=== PATIENT | male | born 1945 | race Caucasian/White ===

== ENCOUNTER 2020-02-07 11:59 | Emergency (ER) | payer MEDICARE, SELFPAY ==
[2020-02-07] VITALS (14 sets, daily range): BP systolic 106–123; BP diastolic 62–72; PULSE 70–92; RESP 15–35; TEMP 37.7; O2SAT 89–99
--- NOTE | ~2020-02-07 | CT_ITS ---
EXAMINATION: CT chest abdomen pelvis wo con DATE: 02/07/2020 12:55 INDICATION: Generalized pain. Pneumonia. Shortness of breath. TECHNIQUE: Computed tomography (CT) of the chest, abdomen, and pelvis was performed without intraveno us contrast. Automated exposure control and iterative reconstruction technique were employed. The dos e-length product was 1208.17 mGy-cm. COMPARISON: None FINDINGS: CHEST CT: Bilateral scattered patchy groundglass opacities in throughout both lungs consistent with pneumonia. There is also scattered mild linear discoid atelectasis. Small left pleural effusion. Bilateral calci fied pulmonary nodules along with calcified right hilar and mediastinal lymph nodes consistent with o ld granulomatous disease. Borderline heart size. No pericardial effusion. No pathologically enlarged thoracic lymphadenopathy. Postoperative change of prior median sternotomy with aortic valve repair an d possible stenting of the proximal descending thoracic aorta. There is aneurysmal dilation of the de scending thoracic aorta which measures up to 4.6 cm in maximal diameter. There is a type B aortic dis section with intramural hematoma slightly higher in attenuation than the blood pool the lumen of the aorta which extends from the origin of the left subclavian artery to the level of the renal arteries in the upper abdominal aorta. No evident para-aortic stranding to suggest rupture. 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 Mild to moderate thoracic spondylosis. ABDOMEN/PELVIS CT: Liver, gallbladder, pancreas, bilateral adrenal glands are normal. Splenic calcification consistent w ith old granulomatous disease. 1.4 cm low-attenuation likely splenic cysts. There are also multiple b ilateral low-attenuation renal cysts the largest measuring up to 8.7 cm on the left. 12 mm hyperdense proteinaceous/hemorrhagic cyst at the lower pole of the right kidney. There are several additional b ilateral indeterminate renal lesions with attenuation between that of blood and simple fluid which re main equivocal for proteinaceous/hemorrhagic cysts and solid neoplasm. The most concerning due to its size and somewhat heterogeneous attenuation arising from the lower pole of the right kidney and montrell ures up to 6.4 cm in maximal dimensions. A short segment of nonobstructed small bowel extends into a small umbilical hernia. The appendix is not visualized. No pericecal inflammatory change to suggest a cute appendicitis. There is mild colonic diverticulosis with a sigmoid predominance. There is no nelson cent inflammatory change to suggest diverticulitis. Bladder is normal. No free intraperitoneal gas o r fluid. No pathologically enlarged abdominal or pelvic lymphadenopathy. Small low-density likely plu g for left inguinal hernia repair at the entrance to the left inguinal canal. Mild lumbar dextrocurva ture with moderate spondylosis. IMPRESSION: 1. 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 Recommend urgent vascular surgery consultation. Dr. Guerra dis cussed these findings with Dr. Paige at 1:15 PM. 2. Patchy bilateral lung disease consistent with multifocal pneumonia. 3. Small left pleural effusion. 4. A few bilateral indeterminate immediate attenuation renal lesions, the largest measuring 6.4 cm th e inferior pole of the right kidney which could represent either renal cell carcinoma or proteinaceou s/hemorrhagic cyst. Recommend further evaluation with pre and postcontrast MRI or CT. 5. Small umbilical hernia containing short segment of nonobstructed small bowel. Reviewed, dictated and finalized at location A. MACHINE OPERATOR IMPRESSION:
--- NOTE | 2020-02-07 12:19 | ECG_ITS ---
Measurements Intervals [place] Rate: 89 P: AK: 0 QRS: 14 QRSD: 108 T: 80 QT: 375 QTc: 457 Interpretive Statements SINUS RHYTHM ATRIAL PREMATURE COMPLEX BORDERLINE ST-T WAVE ABNORMALITY- ANTEROLAT/HIGH LAT LEADS BASELINE ARTIFACT- I, II, III, AVR, AVL, AVF, V1-V6 ABNORMAL ECG Electronically Signed On 02-07-2020 13:01:56 HOUSING MANAGER by Aidan Palomo D.O.
--- NOTE | 2020-02-07 12:30 | ED.GENADULT ---
HPI - General Adult General Chief complaint: Shortness of Breath/Dyspnea Stated complaint: sob, pneumonia? Time Seen by Provider: 02/07/20 12:08 Source: patient Mode of arrival: ambulatory Limitations: no limitations History of Present Illness HPI narrative: Patient is a 74-year-old male complaining of shortness of breath, generalized weakness, malaise, and bilateral flank pain that started weeks ago, not better and getting worse. Patient states that he was diagnosed with pneumonia 3 weeks ago and was admitted at [facility]. Patient denies any chest pain, abdominal pain, nausea vomiting, diarrhea, or fever. Denies any urinary symptoms. Related Data Home Medications Medication Instructions Recorded Confirmed Glucosamine 02/07/20 albuterol sulfate INHALATION 02/07/20 02/07/20 atorvastatin 02/07/20 calcium citrate-vitamin D3 02/07/20 fenofibrate mg 02/07/20 finasteride mg 02/07/20 fluticasone propionate INTRANASAL 02/07/20 furosemide 02/07/20 gabapentin 02/07/20 levetiracetam PO 02/07/20 losartan 02/07/20 metformin mg PO 02/07/20 potassium chloride meq PO 02/07/20 prednisone 02/07/20 ropinirole mg 02/07/20 timolol maleate drp 02/07/20 verapamil mg PO 02/07/20 warfarin 02/07/20 Allergies Allergy/AdvReac Type Severity Reaction Status Date / Time No Known Allergies Allergy Unknown Verified 02/07/20 13:24 Review of Systems Review of Systems: All systems reviewed & are unremarkable except as noted in HPI and below Constitutional: Constitutional: Denies body ache(s), Denies chills, Denies excessive sweating, Denies fever(s), Denies headache(s), Denies lethargy and Denies weight loss Eyes: Eyes: Denies blurry vision, Denies change in vision and Denies loss of vision ENT: Denies dizziness, Denies ear discharge, Denies headache(s), Denies lip swelling, Denies epistaxis, Denies nasal congestion, Denies neck pain, Denies throat swelling and Denies tongue swelling Cardiovascular: Cardiovascular: Denies chest pain, Denies chest pain at rest, Denies chest pain with activity, Denies diaphoresis, Denies rapid heart rate, Denies edema, Denies irregular heart rhythm, Denies lightheadedness and Denies palpitations Respiratory: Respiratory: Denies chest congestion, Denies cough and Denies hemoptysis Gastrointestinal: Gastrointestinal: Denies abdominal pain, Denies melena, Denies hematochezia, Denies diarrhea, Denies nausea, Denies vomiting and Denies hematemesis Musculoskeletal: Musculoskeletal: Denies abnormal gait, Denies deformity, Denies joint swelling, Denies limited range of motion, Denies neck pain and Denies numbness Neurologic: Denies Abnormal speech present, Denies abnormal gait, Denies confusion, Denies dizziness, Denies headache(s), Denies focal weakness, Denies loss of vision, Denies numbness, Denies Other visual disturbances, Denies Sensory deficit (Neuro) and Denies weakness Psychiatric: Psychiatric: Denies confusion, Denies depression, Denies auditory hallucinations, Denies homicidal ideation and Denies suicidal ideation Endocrine: Endocrine: Denies cold intolerance, Denies excessive sweating, Denies fatigue, Denies heat intolerance and Denies palpitations Hematologic/Lymphatic: Hematologic/Lymphatic: Denies easy bleeding and Denies easy bruising Allergic/Immunologic: Allergic/Immunologic: Denies lip swelling, Denies throat swelling and Denies tongue swelling PMFSH Family History Family History (Updated 02/22/11 @ 09:12 by DOCTOR UNKNOWN) Other Family history of cardiovascular disease Hypertension Social History Social History Alcohol intake: current Course Course Emergency Course: [facility] was called in the beginning but they do not have any beds available so they directed us to call [facility]. [facility] was called spoke with Dr. Interiano, vascular surgery at [facility] and accepted the transfer. I spoke to the ER doctor at [facility] Dr. Reich he suggested to call other facility si
--- NOTE | 2020-02-07 12:43 | PC.NURSE ---
called caridad mendieta, added on D dimer and BNP 1242
[2020-02-07] MEDS: SODIUM CHLORIDE 0.9% IV 1,000 ML 999 ML IV CONT (12:47)
--- NOTE | 2020-02-07 12:48 | PC.NURSE ---
To CT via stretcher.
[2020-02-07 12:50] LABS: Basophils Percent Auto 0.2 % (0.2-1.2); Eosinophils Percent Auto 0.4 % (0-4.4); Hematocrit 32.7 % (42.0-52.0); Hemoglobin 10.6 g/dL (14.0-18.0); Immature Granulocyte Absolute 0.04 K/mm3 (0.00-0.031); Immature Granulocyte Percent A 0.4 % (0-0.5); Lymphocytes Absolute Auto 1.02 K/mm3 (0.9-3.2); Lymphocytes Percent Auto 10.5 % (18.3-44.2); Mean Corpuscular HGB Conc 32.4 g/dl (32-36); Mean Corpuscular Hemoglobin 30.8 pg (26-34); Mean Corpuscular Volume 95.1 fl (80-100); Mean Platelet Volume 10.6 fl (7.4-10.4); Monocytes Absolute Auto 1.1 K/mm3 (0.1-0.6); Monocytes Percent Auto 11.1 % (2.6-8.5); Neutrophils Absolute Auto 7.5 K/mm3 (1.3-6.7); Neutrophils Percent Auto 77.4 % (45.5-73.1); Platelet Count Result 119 k/mm3 (150-375); Red Blood Count 3.44 M/mm3 (4.6-6.20); Red Cell Distribution Width 15.8 % (11.5-14.5); White Blood Count 9.7 K/mm3 (4.5-10.0)
[2020-02-07 12:58] LABS: Prothrombin Time 31.9 Seconds (11.1-14.7)
[2020-02-07 13:02] LABS: Add Urine Microscopic? YES; Appearance Urine Clear (Clear); Bacteria Urine Trace /hpf; Bilirubin Urine Negative (Negative); Blood Urine Negative (Negative); Color Urine Yellow (Yellow); Glucose Urine UA Negative (Negative); Ketones Urine Negative (Negative); Leukocyte Esterase Ur Negative LEU/UL (Negative); Nitrate Urine Negative (Negative); Protein Urine 1+ mg/dL (Negative); Specific Grav Ur 1.014 (1.001-1.035); Squamous Epithelial Cell Urine Rare /hpf (Few); WBC Urine 0-3 /hpf
[2020-02-07 13:03] LABS: Lactic Acid Reflex 1.1 mmol/L (0.7-2.1)
[2020-02-07 13:04] LABS: Alanine Aminotransferase 21 U/L (4-50); Alkaline Phosphatase 90 U/L (38-126); Anion Gap 2 mmol/L (8-16); Aspartate Amino Transferase 30 U/L (17-59); Blood Urea Nitrogen 22 mg/dL (9-20); Calcium 9.4 mg/dL (8.4-10.2); Carbon Dioxide 34 mmol/L (22-30); Chloride 100 mmol/L (98-107); Estimated Glomerular Filt Rate 50; Glucose 127 mg/dL (75-110); Potassium 3.6 mmol/L (3.4-5.0); Sodium 136 mmol/L (137-145)
[2020-02-07 13:15] LABS: Troponin I 0.028 ng/mL (0.000-0.034)
[2020-02-07 13:32] LABS: D Dimer 3.35 ug/mL (<0.48)
[2020-02-07 13:39] LABS: NT Pro B Type Natriuretic Pept 1130 PG/ML (5-100)
--- NOTE | 2020-02-07 14:33 | PC.NURSE ---
Dr. Paige at bedside discussing plan of care.
--- NOTE | 2020-02-07 15:12 | PC.NURSE ---
[facility] accepted transfer to [facility], [place] 45min TRIP # [id number]
--- NOTE | 2020-02-07 15:18 | PC.NURSE ---
This nurse faxed patient's CT report to 's office upon request. Faxed to [phone].
--- NOTE | 2020-02-07 16:18 | PC.NURSE ---
Addendum entered by Joaquín Quarles RN 02/07/20 16:36: Pt and updated. Pt denies needs at present. Original Note: eta status is another 30 min
== END 2020-02-07 16:58 | disposition short-term general hospital (02) ==
PROVIDERS: Emergency Provider Emergency Medicine; PCP Internal Medicine
DX: I71.01 Dissection of thoracic aorta (principal); J18.9 Pneumonia, unspecified organism; Z79.84 Long term (current) use of oral hypoglycemic drugs; I49.1 Atrial premature depolarization; R94.31 Abnormal electrocardiogram [ECG] [EKG]; N28.9 Disorder of kidney and ureter, unspecified; K42.9 Umbilical hernia without obstruction or gangrene
CPT/HCPCS: 36415; 71250; 74176; 80053; 81001; 83605; 83880; 84484; 85025; 85380; 85610; 93005; 96361; 96365; 96367; 99291; J0456; J0696; J7030

== ENCOUNTER 2021-01-27 00:57 | Day surgery (SDC) | payer MEDICARE, SELFPAY ==
[2021-01-12 16:06] VITALS: BMI 24.8
--- NOTE | 2021-01-26 08:48 | PM.HPGS ---
History of Present Illness History of Present Illness Consent: Risks, benefits, and alternatives have been discussed and questions answered. Patient agrees to proceed with procedure. Chief complaint: abnormal CAT scan Narrative: Reggie Berry is a 75 year old male Who recently underwent CT angiography of the chest. One of the findings was a new abnormal appearing lymph node in the gastrohepatic area. There was also mention of decreased fat between the aneurysm in esophagusFor that reason radiology recommended EGD to rule out upper gastrointestinal pathology. The CT shows effacement of the fat plane between the esophagus and aneurysm . Review of Systems Review of Systems: All systems reviewed & are unremarkable except as noted in HPI and below PMFSH Past Medical History Medical History Abdominal pain Aortic valve disorder Chest pain Essential hypertension Gastroesophageal reflux disease Herpes zoster Hydrocele Multiple renal cysts Obstructive sleep apnea CPAP Overactive bladder Rheumatoid arthritis Sciatica Seizure 2013 Sinusitis Spinal stenosis of lumbar region Type 2 diabetes mellitus without complication Type 2 dissection of thoracic aorta Venous stasis Vitamin B12 deficiency (non anemic) Surgical History Surgical History History of artificial heart valve History of coronary artery stent placement Hx of CABG Family History Family History Mother , age 85 Cerebral aneurysm Father , age 70 Arteriosclerotic heart disease Sibling Hypertension Sibling Esophageal reflux Other Family history of cardiovascular disease Social History Social History Smoking status: Never smoker Alcohol intake: current Alcohol use details: occasional wine cooler Substance use: never Substance use type: does not use Living arrangements: with family Additional living arrangements comments: lives with spouse Spiritual care concerns: No Meds Home Medications and Allergies Home Medications Medication Instructions Recorded Confirmed Type calcium citrate-vitamin D3 1 tab-cap PO DAILY 02/07/20 01/12/21 History fluticasone propionate 1 spray INTRANASAL PRN PRN 02/07/20 01/12/21 History atorvastatin 40 mg tablet 40 mg PO DAILY tablet 03/31/20 01/12/21 History furosemide 40 mg tablet 40 mg PO DAILY tablet 03/31/20 01/12/21 History hydrocodone 7.5 mg-acetaminophen 1 tablet PO Q6H 03/31/20 01/12/21 History 325 mg tablet metformin 500 mg tablet,extended 500 mg PO DAILY tablet 03/31/20 01/12/21 History release 24 hr potassium chloride 20 mEq 20 meq PO DAILY tablet 03/31/20 09/03/20 History tablet,extended release(part/cryst) warfarin 5 mg tablet 5 mg PO .2.5mg daily tablet 03/31/20 01/12/21 History carvedilol 25 mg tablet 25 mg PO Q12H 09/03/20 01/12/21 History prednisone 5 mg PO DAILY 01/12/21 01/12/21 History spironolactone 25 mg PO DAILY 01/12/21 01/12/21 History enoxaparin 80 mg/0.8 mL 80 mg SUBCUT Q12H #8 ml 01/20/21 Rx subcutaneous syringe Allergies Allergy/AdvReac Type Severity Reaction Status Date / Time hydroxychloroquine AdvReac Unknown unknown Verified 01/27/21 09:49 [From Plaquenil] Exam Const: General: alert Orientation/consciousness: patient oriented x3 Resp: Auscultation: clear to auscultation bilaterally Cardio: Rhythm: regular rhythm GI: GI Palp: Yes Soft to palpation and No Tenderness to palpation present (GI) Neuro: General: patient oriented x3 Assessment and Plan Assessment and plan (1) Abnormal CT scan, gastrointestinal tract: Code(s): R93.3 - Abnormal findings on diagnostic imaging of other parts of digestive tract Status: Acute Assessment and Plan: EGD with possible b
--- NOTE | 2021-01-26 09:33 | WPDANESEPPF ---
Anes - Initial Pre Proc Eval Procedure: Operation Date: 01/27/21 10:30 Proposed Procedures p Esophagogastroduodenoscopy - Jose Pedroza MD Date/Time: 01/26/21 09:33 Surgeon: Jose Pedroza MD Pre Op Diagnosis: abnormal CAT scan Patient Data Age: 75 Gender: M Height: 1.82 m Weight: 82 kg Allergies Allergy/AdvReac Type Severity Reaction Status Date / Time hydroxychloroquine AdvReac Unknown unknown Verified 01/27/21 09:49 [From Plaquenil] Home Medications Medication Instructions Recorded Confirmed Type calcium citrate-vitamin D3 1 tab-cap PO DAILY 02/07/20 01/12/21 History fluticasone propionate 1 spray INTRANASAL PRN PRN 02/07/20 01/12/21 History atorvastatin 40 mg tablet 40 mg PO DAILY tablet 03/31/20 01/12/21 History furosemide 40 mg tablet 40 mg PO DAILY tablet 03/31/20 01/12/21 History hydrocodone 7.5 mg-acetaminophen 1 tablet PO Q6H 03/31/20 01/12/21 History 325 mg tablet metformin 500 mg tablet,extended 500 mg PO DAILY tablet 03/31/20 01/12/21 History release 24 hr potassium chloride 20 mEq 20 meq PO DAILY tablet 03/31/20 09/03/20 History tablet,extended release(part/cryst) warfarin 5 mg tablet 5 mg PO .2.5mg daily tablet 03/31/20 01/12/21 History carvedilol 25 mg tablet 25 mg PO Q12H 09/03/20 01/12/21 History prednisone 5 mg PO DAILY 01/12/21 01/12/21 History spironolactone 25 mg PO DAILY 01/12/21 01/12/21 History enoxaparin 80 mg/0.8 mL 80 mg SUBCUT Q12H #8 ml 01/20/21 Rx subcutaneous syringe Patient hx anesthesia problems: none Family hx anesthesia problems: none Results Review: All pre-operative results and documents have been reviewed as part of the pre-operative evaluation. [facility] Past Medical History Medical History Abdominal pain Aortic valve disorder Chest pain Essential hypertension Gastroesophageal reflux disease Herpes zoster Hydrocele Multiple renal cysts Obstructive sleep apnea CPAP Overactive bladder Rheumatoid arthritis Sciatica Seizure 2013 Sinusitis Spinal stenosis of lumbar region Type 2 diabetes mellitus without complication Type 2 dissection of thoracic aorta Venous stasis Vitamin B12 deficiency (non anemic) Surgical History Surgical History History of artificial heart valve History of coronary artery stent placement Hx of CABG Family History Family History Mother , age 85 Cerebral aneurysm Father , age 70 Arteriosclerotic heart disease Sibling Hypertension Sibling Esophageal reflux Other Family history of cardiovascular disease Social History Social History Smoking status: Never smoker Alcohol intake: current Alcohol use details: occasional wine cooler Substance use: never Substance use type: does not use Living arrangements: with family Additional living arrangements comments: lives with spouse Spiritual care concerns: No Anes - Eval Final PreProcedure Day of Procedure 01/26/21 09:33 Patient weight: normal Heart: regular rate and rhythm Lungs: clear to auscultation and normal air movement Airway: Mallampati scale class II Neurological: alert and oriented Last oral intake: >/= 8 hours ASA classification: IV Emergent: no Anesthetic plan: proceed Anesthesia type and monitoring: general GIVS and standard monitoring Results Review: All pre-operative results and documents have been reviewed as part of the pre-operative evaluation. Informed Consent: The patient's anesthetic plan and its attendant risks and benefits were discussed with the patient/family/POA. Questions were solicited and answers provided to the satisfaction of the patient/family/POA.
[2021-01-27 09:40] VITALS: BP 129/61; PULSE 56; RESP 18; O2SAT 100
[2021-01-27 09:49] LABS: Glucose Point of Care 93 mg/dl (65-105)
[2021-01-27 09:52] VITALS: BP 152/57; PULSE 59; RESP 18; TEMP 36.2; O2SAT 99; BMI 24.3
[2021-01-27] MEDS: LACTATED RINGERS 1,000 ML 150 ML IV CONT (09:59)
[2021-01-27] MEDS: GENTAMICIN 80MG/SOD CHL 50 ML 80 MG/50 ML BAG 100 MG IVPB (09:59)
[2021-01-27 10:04] LABS: INR 1.5
[2021-01-27] MEDS: AMPICILLIN 2 GM/NS 100 ML 2 GM/100 ML BAG IVPB (10:19)
[2021-01-27] MEDS: SIMETHICONE ORAL SUSPENSION 20 MG/0.3 ML 30 ML BOTTLE 0.6 ML IRRIGATION (10:34)
[2021-01-27 10:40] VITALS: BP 129/68; PULSE 58; RESP 18
[2021-01-27 10:50] VITALS: BP 141/61; PULSE 51; RESP 20; O2SAT 98
[2021-01-27 11:00] VITALS: BP 129/54; PULSE 52; RESP 24; O2SAT 100
== END 2021-01-27 11:11 | disposition home or self-care (01) ==
PROVIDERS: PCP Internal Medicine; Visit Provider Internal Medicine Gastroenterology
PROC: 0DJ08ZZ Inspection of Upper Intestinal Tract, Via Natural or Artificial Opening Endoscopic (ICD-10-PCS; CPT 43235; principal; 2021-01-27 10:30)
DX: K21.9 Gastro-esophageal reflux disease without esophagitis (principal); K44.9 Diaphragmatic hernia without obstruction or gangrene; K29.70 Gastritis, unspecified, without bleeding; Z79.84 Long term (current) use of oral hypoglycemic drugs; Z79.82 Long term (current) use of aspirin; I35.8 Other nonrheumatic aortic valve disorders; I10 Essential (primary) hypertension; N28.1 Cyst of kidney, acquired; J44.9 Chronic obstructive pulmonary disease, unspecified; M06.9 Rheumatoid arthritis, unspecified; I71.01 Dissection of thoracic aorta; E11.9 Type 2 diabetes mellitus without complications; M48.061 Spinal stenosis, lumbar region without neurogenic claudication; E53.8 Deficiency of other specified B group vitamins; Z95.2 Presence of prosthetic heart valve; Z95.1 Presence of aortocoronary bypass graft; Z79.01 Long term (current) use of anticoagulants; Z79.899 Other long term (current) drug therapy
CPT/HCPCS: 43239; 36415; 82948; 85610; 87081; 88305; J0290; J1580; J2704; J7120

== ENCOUNTER 2022-08-31 11:27 | Outpatient (CLI) | payer MEDICARE, SELFPAY ==
--- NOTE | ~2022-08-31 | US_ITS ---
EXAMINATION: US renal BI DATE: 08/31/2022 12:14 INDICATION: Renal cysts TECHNIQUE: Multiple ultrasound grayscale images of the kidneys were obtained. COMPARISON: None. FINDINGS: The right kidney measures 12.3 x 6.7 x 6.2 cm. The left kidney measures 11.8 x 6.3 x 6.2 cm. The kidn eys demonstrate normal echogenicity. Multiple bilateral anechoic renal cysts the largest on the right measuring 5.4 cm and the largest on the left measuring 4.2 cm. There is no hydronephrosis in either kidney. No stones identified. The bladder is normal. With bilateral ureteral jets visualized with co hong Doppler. IMPRESSION: 1. Normal kidneys without hydronephrosis. Reviewed, dictated and finalized at location B.
== END 2022-08-31 11:28 | disposition home or self-care (01) ==
PROVIDERS: PCP Internal Medicine
DX: N28.1 Cyst of kidney, acquired (principal)
CPT/HCPCS: 76775

== ENCOUNTER 2023-01-23 00:47 | Day surgery (SDC) | payer MEDICARE, SELFPAY ==
[2023-01-19 14:48] VITALS: BMI 27.6
[2023-01-23 12:48] VITALS: BP 132/62; PULSE 75; RESP 18; TEMP 36.1; O2SAT 99
--- NOTE | 2023-01-23 12:53 | WPDANESEPPF ---
Anes - Initial Pre Proc Eval Procedure: Operation Date: 01/23/23 14:00 Proposed Procedures p Esophagogastroduodenoscopy & Colonoscopy - Jose Pedroza MD Date/Time: 01/23/23 12:53 Surgeon: Jose Pedroza MD Pre Op Diagnosis: Epigastric Pain, abdominal pain Patient Data Age: 77 Gender: M Height: 1.8 m Weight: 87.6 kg Last Vital Signs Temp 97 F L 01/23/23 12:48 Pulse 75 01/23/23 12:48 Resp 18 01/23/23 12:48 BP 132/62 01/23/23 12:48 Pulse Ox 99 01/23/23 12:48 O2 Del Method Room Air 01/23/23 12:48 Allergies Allergy/AdvReac Type Severity Reaction Status Date / Time hydroxychloroquine Allergy Unknown unknown Verified 01/23/23 12:36 [From Plaquenil] Home Medications Medication Instructions Recorded Confirmed Type fluticasone propionate 50 1 spray intranasal PRN PRN Sinus 02/07/20 01/19/23 History mcg/actuation nasal Symptoms spray,suspension atorvastatin 40 mg tablet 40 mg PO DAILY 03/31/20 01/19/23 History warfarin 5 mg tablet 2.5 mg PO DAILY 03/31/20 01/23/23 History carvedilol 25 mg tablet (Coreg) 12.5 mg PO Q12H 09/03/20 01/19/23 History spironolactone 25 mg tablet 25 mg PO DAILY 01/12/21 01/19/23 History hydralazine 50 mg tablet 200 mg PO BID 06/23/22 01/19/23 History losartan 100 mg tablet 100 mg PO DAILY 06/23/22 01/19/23 History prednisone 5 mg tablet 5 mg PO DAILY 06/23/22 01/19/23 History tamsulosin 0.4 mg capsule 0.4 mg PO DAILY 06/23/22 01/19/23 History sodium,potassium,mag sulfates 17.5 See Rx Instructions .Route 01/19/23 Rx gram-3.13 gram-1.6 gram oral soln .COMPLEX #354 mL (Suprep Bowel Prep Kit) Patient hx anesthesia problems: none Family hx anesthesia problems: none Results Review: All pre-operative results and documents have been reviewed as part of the pre-operative evaluation. [facility] Past Medical History Medical History Abdominal pain Aortic valve disorder Chest pain Essential hypertension Gastroesophageal reflux disease Herpes zoster Hydrocele Multiple renal cysts Obstructive sleep apnea CPAP Overactive bladder Rheumatoid arthritis Sciatica Seizure 2013 Sinusitis Spinal stenosis of lumbar region Type 2 diabetes mellitus without complication Type 2 dissection of thoracic aorta Venous stasis Vitamin B12 deficiency (non anemic) Surgical History Surgical History History of artificial heart valve History of coronary artery stent placement Hx of CABG Family History Family History Mother , age 85 Cerebral aneurysm Father , age 70 Arteriosclerotic heart disease Sibling Hypertension Sibling Esophageal reflux Other Family history of cardiovascular disease Social History Social History Smoking status: Never smoker Alcohol intake: current Alcohol use details: occasional wine cooler Substance use: never Substance use type: does not use Lack of Transportation: No Lack of Food: Never True Current Housing: I Have Housing Concerned About Future Housing: No Difficulty Paying Gas/Electric Bills: No Difficulty Paying for Meds: No Currently Unemployed: No Difficulty w/ Childcare or Family Care: No Living arrangements: with family Additional living arrangements comments: lives with spouse Gender identity (if verbalized by the patient): Male Spiritual care concerns: No Anes - Eval Final PreProcedure Day of Procedure 01/23/23 12:53 Patient weight: normal Heart: regular rate and rhythm Lungs: clear to auscultation Airway: Mallampati scale class III Neurological: alert and oriented Last oral intake: >/= 8 hours ASA classification: III Emergent: no Anesthetic plan: proceed Anesthesia type and monitoring: general GIVS and
[2023-01-23] MEDS: LACTATED RINGERS 1,000 ML 150 ML IV CONT (13:01)
[2023-01-23] MEDS: GENTAMICIN 80MG/SOD CHL 50 ML 80 MG/50 ML BAG 100 MG IVPB (13:02)
--- NOTE | 2023-01-23 13:27 | PM.HPGS ---
History of Present Illness History of Present Illness Consent: Risks, benefits, and alternatives have been discussed and questions answered. Patient agrees to proceed with procedure. Chief complaint: Epigastric Pain, abdominal pain Narrative: Reggie Berry is a 77 year old male With postprandial pain going on for about 4 months. Typically about an hour after meal he will have discomfort poorly localized to the mid abdomen that will last for several hours. This is not accompanied by nausea or vomiting. There has been no significant change in bowel movements. He has had vascular surgery including repair of aortic valve, repair of the ascending aorta and repair of the proximal abdominal aorta with an endovascular graft. The CT scan available which is a CTA, does not mention mesenteric vessel patency. He has a history of colon polyps. Review of Systems Review of Systems: All systems reviewed & are unremarkable except as noted in HPI and below PMFSH Past Medical History Medical History Abdominal pain Aortic valve disorder Chest pain Essential hypertension Gastroesophageal reflux disease Herpes zoster Hydrocele Multiple renal cysts Obstructive sleep apnea CPAP Overactive bladder Rheumatoid arthritis Sciatica Seizure 2013 Sinusitis Spinal stenosis of lumbar region Type 2 diabetes mellitus without complication Type 2 dissection of thoracic aorta Venous stasis Vitamin B12 deficiency (non anemic) Surgical History Surgical History History of artificial heart valve History of coronary artery stent placement Hx of CABG Family History Family History Mother , age 85 Cerebral aneurysm Father , age 70 Arteriosclerotic heart disease Sibling Hypertension Sibling Esophageal reflux Other Family history of cardiovascular disease Social History Social History Smoking status: Never smoker Alcohol intake: current Alcohol use details: occasional wine cooler Substance use: never Substance use type: does not use Lack of Transportation: No Lack of Food: Never True Current Housing: I Have Housing Concerned About Future Housing: No Difficulty Paying Gas/Electric Bills: No Difficulty Paying for Meds: No Currently Unemployed: No Difficulty w/ Childcare or Family Care: No Living arrangements: with family Additional living arrangements comments: lives with spouse Gender identity (if verbalized by the patient): Male Spiritual care concerns: No Meds Home Medications and Allergies Home Medications Medication Instructions Recorded Confirmed Type fluticasone propionate 50 1 spray intranasal PRN PRN Sinus 02/07/20 01/19/23 History mcg/actuation nasal Symptoms spray,suspension atorvastatin 40 mg tablet 40 mg PO DAILY 03/31/20 01/19/23 History warfarin 5 mg tablet 2.5 mg PO DAILY 03/31/20 01/23/23 History carvedilol 25 mg tablet (Coreg) 12.5 mg PO Q12H 09/03/20 01/19/23 History spironolactone 25 mg tablet 25 mg PO DAILY 01/12/21 01/19/23 History hydralazine 50 mg tablet 200 mg PO BID 06/23/22 01/19/23 History losartan 100 mg tablet 100 mg PO DAILY 06/23/22 01/19/23 History prednisone 5 mg tablet 5 mg PO DAILY 06/23/22 01/19/23 History tamsulosin 0.4 mg capsule 0.4 mg PO DAILY 06/23/22 01/19/23 History sodium,potassium,mag sulfates 17.5 See Rx Instructions .Route 01/19/23 Rx gram-3.13 gram-1.6 gram oral soln .COMPLEX #354 mL (Suprep Bowel Prep Kit) Allergies Allergy/AdvReac Type Severity Reaction Status Date / Time hydroxychloroquine Allergy Unknown unknown Verified 01/23/23 12:36 [From Plaquenil] Vital Signs Vital Signs - 24 hr 01/23/23 12:48 Temperature 36.1 C L Pulse Rate 75 Respiratory Rate 18 Blood Pressure
--- NOTE | 2023-01-23 13:46 | SUR.OPER ---
EGD: [id number] COLON: Start 1348
[2023-01-23] MEDS: AMPICILLIN 2 GM/NS 100 ML 2 GM/100 ML BAG IVPB (13:56)
[2023-01-23 14:03] VITALS: BP 145/123; PULSE 74; RESP 18; O2SAT 100
[2023-01-23 14:13] VITALS: BP 92/48; PULSE 76; RESP 18; O2SAT 98
[2023-01-23 14:23] VITALS: BP 118/53; PULSE 60; RESP 18; O2SAT 96
--- NOTE | 2023-01-23 14:44 | SUR.PHASEII ---
DR GOYAL NOTIFIED OF PT'S SINUS ARRYTHMIA WITH MULTIFOCAL PVC'S, DR GOYAL HERE SEEING PT, NO NEW ORDERS, PT'S SPOUSE STATES THIS IS NORMAL FOR THE PT AND HAS NO CONCERNS, PT A&OX4 WITH NO CONCERNS, PT UP DRESSING AND TO WHEELCHAIR WITHOUT DIFFICULTY.
== END 2023-01-23 14:48 | disposition home or self-care (01) ==
PROVIDERS: PCP Internal Medicine; Visit Provider Internal Medicine Gastroenterology
PROC: 0DJ08ZZ Inspection of Upper Intestinal Tract, Via Natural or Artificial Opening Endoscopic (ICD-10-PCS; CPT 43235; principal; 2023-01-23 14:00)
DX: Z12.11 Encounter for screening for malignant neoplasm of colon (principal); D12.0 Benign neoplasm of cecum; K64.8 Other hemorrhoids; K57.30 Diverticulosis of large intestine without perforation or abscess without bleeding; K21.9 Gastro-esophageal reflux disease without esophagitis; I10 Essential (primary) hypertension; G47.33 Obstructive sleep apnea (adult) (pediatric); E11.9 Type 2 diabetes mellitus without complications; Z95.1 Presence of aortocoronary bypass graft; Z79.01 Long term (current) use of anticoagulants; M06.9 Rheumatoid arthritis, unspecified; Z95.4 Presence of other heart-valve replacement; Z95.5 Presence of coronary angioplasty implant and graft
CPT/HCPCS: 43239; 45385; 87081; 88305; J0290; J1580; J2704; J7120

== ENCOUNTER 2023-10-02 07:08 | Inpatient (IN) | payer MEDICARE, SELFPAY ==
[2023-10-02] VITALS (13 sets, daily range): BP systolic 145–190; BP diastolic 60–109; PULSE 62–80; RESP 15–20; TEMP 36.6–37; O2SAT 90–99; BMI 28.3
--- NOTE | ~2023-10-02 | XR_ITS ---
XR wrist LT min 3V Ordering provider: Anthony Machado MD History: . Wrist pain, no ROM X 2 days, worsening, nki . Comparison: None. FINDINGS: BONES: No acute fracture or dislocation. No definite scaphoid fracture. Changes seen in the fifth me tacarpal bone is most likely artifactual. JOINT SPACES: Well maintained. SOFT TISSUES: Normal. IMPRESSION: No acute osseous abnormality left wrist. Reviewed, dictated and finalized at location A.
--- NOTE | ~2023-10-02 | XR_ITS ---
EXAMINATION: XR md joint inject/asp w image DATE: 10/02/2023 11:41 INDICATION: Left wrist pain and swelling. TECHNIQUE: A time-out was performed to verify the patient's name, date of , and procedure to b e performed. The procedure including the risks, benefits, and alternatives was discussed with the pat ient. Risks discussed included bleeding and infection. The patient understood the risks and agreed to proceed. The skin overlying the left radiocarpal joint was prepped and draped in usual sterile fash ion. Anesthetic was administered with 1% lidocaine subcutaneously. An 18 G needle was advanced unde r fluoroscopic guidance into the joint. Fluid was aspirated. The needle was removed and the entry sit e was cleaned and dressed. There were no immediate complications. Fluoroscopy exposure time was 0.1 minutes. The total number of images was 2. FINDINGS: Real-time fluoroscopy demonstrates the needle in the left radiocarpal joint. IMPRESSION: 1. Fluoroscopy-guided left radiocarpal joint aspiration yielding 1 mL grossly bloody fluid. Reviewed, dictated and finalized at location A. IMPRESSION: 1. Fluoroscopy-guided left radiocarpal joint aspiration yielding 1 mL grossly b loody fluid.
--- NOTE | 2023-10-02 07:53 | ED.GENADULT ---
HPI - General Adult General Chief complaint: Extremity Problem,Nontraumatic Stated complaint: L WRIST PAIN NO KNOWN INJURY Time Seen by Provider: 10/02/23 07:19 History of Present Illness HPI narrative: This is a 78-year-old male history of arthritis on daily prednisone presenting for left wrist pain. Pain started yesterday morning. He has been taking his normal pain medication including Tylenol and hydrocodone with no relief. He now has pain active and passive range motion. He denies fevers chills nausea vomiting or diarrhea. Patient is on Coumadin for an aortic heart valve. He denies trauma. Related Data Home Medications Medication Instructions Recorded Confirmed fluticasone propionate 50 1 spray intranasal PRN PRN Sinus 02/07/20 09/06/23 mcg/actuation nasal Symptoms spray,suspension atorvastatin 40 mg tablet 40 mg PO DAILY 03/31/20 09/06/23 warfarin 5 mg tablet 2.5 mg PO DAILY 03/31/20 09/06/23 carvedilol 25 mg tablet (Coreg) 12.5 mg PO Q12H 09/03/20 09/06/23 spironolactone 25 mg tablet 25 mg PO DAILY 01/12/21 09/06/23 hydralazine 50 mg tablet 200 mg PO BID 06/23/22 09/06/23 losartan 100 mg tablet 100 mg PO DAILY 06/23/22 09/06/23 prednisone 5 mg tablet 5 mg PO DAILY 06/23/22 09/06/23 tamsulosin 0.4 mg capsule 0.4 mg PO DAILY 06/23/22 09/06/23 Allergies Allergy/AdvReac Type Severity Reaction Status Date / Time hydroxychloroquine Allergy Unknown unknown Verified 10/02/23 07:15 [From Plaquenil] [facility] Past Medical History Medical History Abdominal pain Aortic valve disorder Chest pain Essential hypertension Gastroesophageal reflux disease Herpes zoster Hydrocele Multiple renal cysts Obstructive sleep apnea CPAP Overactive bladder Rheumatoid arthritis Sciatica Seizure 2013 Sinusitis Spinal stenosis of lumbar region Type 2 diabetes mellitus without complication Type 2 dissection of thoracic aorta Venous stasis Vitamin B12 deficiency (non anemic) Surgical History Surgical History History of artificial heart valve History of coronary artery stent placement Hx of CABG Family History Family History Mother , age 85 Cerebral aneurysm Father , age 70 Arteriosclerotic heart disease Sibling Hypertension Sibling Esophageal reflux Other Family history of cardiovascular disease Social History Social History Smoking status: Never smoker Alcohol intake: current Alcohol use details: occasional wine cooler Substance use: never Substance use type: does not use Do You Feel Safe in your Home?: Yes Lack of Transportation: No Lack of Food: Never True Current Housing: I Have Housing Concerned About Future Housing: No Difficulty Paying Gas/Electric Bills: No Difficulty Paying for Meds: No Currently Unemployed: No Difficulty w/ Childcare or Family Care: No Living arrangements: with family Additional living arrangements comments: lives with spouse Gender identity (if verbalized by the patient): Male Spiritual care concerns: No Exam Narrative: APPEARANCE: No apparent distress. Head: atraumatic. 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 Moving 4/4 extremities SKIN:: Warm, dry. Normal color PSYCHIATRIC: Normal affect Course Vital Signs Vital signs: Vital Signs Temperature 98.3 F 10/02/23 07:13 Pulse Rate 80 10/02/23 07:13 Respiratory Rate 17 10/02/23 07:13 Blood Pressure 159/80 H
[2023-10-02] MEDS: HYDROmorphone HCL INJ (*CRX) 1 MG/ML SYR 0.5 MG IV PUSH ×2 (08:02→10:52)
[2023-10-02 08:13] LABS: Basophils Percent Auto 0.3 % (0.2-1.2); Eosinophils Percent Auto 0.2 % (0-4.4); Hematocrit 37.9 % (42.0-52.0); Hemoglobin 12.2 g/dL (14.0-18.0); Immature Granulocyte Absolute 0.05 K/mm3 (0.00-0.031); Immature Granulocyte Percent A 0.5 % (0-0.5); Immature Platelet Fraction Pct 6.5 % (0.9-11.2); Lymphocytes Absolute Auto 1.29 K/mm3 (0.9-3.2); Lymphocytes Percent Auto 12.2 % (18.3-44.2); Mean Corpuscular HGB Conc 32.2 g/dl (32-36); Mean Corpuscular Hemoglobin 33.2 pg (26-34); Mean Corpuscular Volume 103.3 fl (80-100); Mean Platelet Volume 11.4 fl (7.4-10.4); Monocytes Absolute Auto 1.4 K/mm3 (0.1-0.6); Monocytes Percent Auto 13.5 % (2.6-8.5); Neutrophils Absolute Auto 7.8 K/mm3 (1.3-6.7); Neutrophils Percent Auto 73.3 % (45.5-73.1); Platelet Count Result 104 k/mm3 (150-375); Red Blood Count 3.67 M/mm3 (4.6-6.20); Red Cell Distribution Width 12.8 % (11.5-14.5); White Blood Count 10.6 K/mm3 (4.5-10.0)
[2023-10-02 08:21] LABS: INR 4.9; Prothrombin Time 46.1 Seconds (11.1-14.7)
[2023-10-02 08:25] LABS: Alanine Aminotransferase 17 U/L (6-50); Albumin Level 4.1 g/dL (3.5-5.1); Alkaline Phosphatase 57 U/L (38-126); Anion Gap 5 mmol/L (4-12); Aspartate Amino Transferase 23 U/L (17-59); Bilirubin,Total 0.7 mg/dL (0.2-1.3); Blood Urea Nitrogen 31 mg/dL (9-20); CRP 1.6 mg/dL (<1.0); Calcium 9.3 mg/dL (8.4-10.2); Carbon Dioxide 27 mmol/L (22-30); Chloride 108 mmol/L (98-107); Estimated CRCL calculation 37 ml/min; Estimated Glomerular Filt Rate 42; Glucose 102 mg/dL (65-110); Potassium 4.1 mmol/L (3.4-5.0); Sodium 140 mmol/L (137-145)
[2023-10-02 08:55] LABS: Erythrocyte Sedimentation Rate 44 mm/hr (0-20)
[2023-10-02] MEDS: CEFEPIME 2 GM/NS 50 ML 2 GM/50 ML BAG IVPB ×2 (11:34→23:00)
[2023-10-02] MEDS: VANCOMYCIN 1,250 MG/NS 250 ML 1,250 MG/250 ML BAG 166.67 MG IVPB (12:11)
[2023-10-02 12:31] LABS: Nucleated Cell Synovial Fluid 73320 /uL (0-200)
[2023-10-02 12:32] LABS: Appearance Synovial Fluid Turbid (Clear); Color Synovial Fluid Red (Colorless); RBC Synovial Fluid 896000 /uL (0-0); Source Synovial Fluid Synovial fluid
[2023-10-02 12:54] LABS: Lymphocytes Synovial Fluid 1 %; Neutrophils Synovial Fluid 92 % (0-25)
[2023-10-02 12:55] LABS: Monocytes Synovial Fluid 7 %
[2023-10-02 13:01] LABS: Crystals Synovial Fluid None Seen (None Seen)
[2023-10-02] MEDS: VANCOMYCIN 1,000 MG/NS 250 ML 1,000 MG/250 ML BAG 250 MG IVPB (13:44)
--- NOTE | 2023-10-02 14:27 | PM.IMHP ---
H&P: HPI History of Present Illness Date/Time: 10/02/23 16:30 Chief Complaint: Left wrist pain. Narrative: This is a very pleasant 78-year-old male with coronary artery disease status, status post mechanical aortic valve replacement on warfarin, hypertension, hyperlipidemia, chronic kidney disease stage IIIB, obstructive sleep apnea, benign prostatic hyperplasia, and rheumatoid arthritis on chronic low-dose prednisone who presented to the emergency department for evaluation of left wrist pain. The patient provides the following history. He awoke from sleep yesterday with some pain in his left wrist. Initially he did not think much of it as it is not unusual for him to have joint pain due to his arthritis. As the day progressed the pain intensified; he describes a severe throbbing pain which is different than his usual arthritic pain. The wrist has become increasingly swollen and warm. He has pain with both active and passive range of motion. The wrist has become swollen and warm. Acetaminophen and hydrocodone have not provided him with much relief. He denies trauma. No fever, chills, sweats, nausea, vomiting, and pain or swelling in other joints. In the ED: He was afebrile on arrival. Blood pressures have been running in the 160s to 170s systolic. The remainder of his vital signs are stable. Labs were significant for WBC count 10.6, hemoglobin 12.2, platelet 104, INR 4.9, BUN 31, creatinine 1.60, CRP 1.6. Synovial fluid obtained from the left wrist was bloody with 73,327 nucleated cells. No crystals seen on microscopy. He received doses of cefepime and vancomycin and is being admitted in this setting for further treatment and orthopedic consultation. Review of Systems Review of Systems: 12 systems were reviewed and are negative except for as per HPI. [facility] Past Medical History Medical History Benign prostatic hyperplasia Chronic anemia Chronic anticoagulation Colon polyps Essential hypertension Gastroesophageal reflux disease Herpes zoster Obstructive sleep apnea on CPAP Overactive bladder Rheumatoid arthritis Sciatica Seizure (2012) Spinal stenosis of lumbar region Stage 3b chronic kidney disease Type 2 diabetes mellitus without complication Type 2 dissection of thoracic aorta Venous stasis Vitamin B12 deficiency Vitamin D deficiency Surgical History Surgical History History of colonoscopy with polypectomy History of coronary artery bypass graft History of coronary artery stent placement History of hemorrhoidectomy History of mechanical aortic valve replacement Family History Family History Mother , age 85 Cerebral aneurysm Father , age 70 Arteriosclerotic heart disease Sibling Hypertension Sibling Esophageal reflux Other Family history of cardiovascular disease Social History Social History Social History: Surrogate medical decision maker: Toña Berry, spouse. Code status: Full code. Smoking status: Never smoker Alcohol intake: current Alcohol use details: Social alcohol use in moderation. Substance use: never Substance use type: does not use Do You Feel Safe in your Home?: Yes Lack of Transportation: No Lack of Food: Never True Current Housing: I Have Housing Concerned About Future Housing: No Difficulty Paying Gas/Electric Bills: No Difficulty Paying for Meds: No Currently Unemployed: No Education: Associate Degree Difficulty w/ Childcare or Family Care: No Additional living arrangements comments: Lives with spouse in [place]. Additional occupation/education comments: Retired. Spiritual care concerns: No Meds Home Medications and Allergies Home Medications Medication Instructions Recorded Co
--- NOTE | 2023-10-02 15:18 | ADMGEN ---
This patient, Reggie Berry, was admitted to 3 [facility] [place] Surg Room 301-01. Patient/family oriented to hospital policies and general routines including ID bracelet, bed and alarms, visiting hours, pain management, procedures, bathroom and other care routines, personal items, smoking policy, room service/diet, and visiting hours. Information on how to activate the Rapid Response Team has been discussed. Patient/Family are encouraged to report perceived risks to care and to ask questions if they do not understand what they are told or what they should do.
--- NOTE | 2023-10-02 16:44 | PHAR ---
TALKED WITH ANNE ROLDAN. PATIENTS CRCL = 37 ML/MIN. SHE OK'D RENALLY CHANGING CEFEPIME DOSE SCHEDULE TO Q12HR.
[2023-10-02] MEDS: carvediloL 12.5 MG TABLET PO (21:21)
[2023-10-02] MEDS: hydrALAZINE HCL 25 MG TABLET 75 MG PO (21:22)
[2023-10-02] MEDS: HYDROcodone/acetaminophen (*CRX) 5-325 MG TABLET 1 TAB PO (21:31)
[2023-10-03] VITALS (8 sets, daily range): BP systolic 139–160; BP diastolic 52–69; PULSE 62–73; RESP 12–18; TEMP 35.6–36.9; O2SAT 93–96
[2023-10-03] MEDS: HYDROcodone/acetaminophen (*CRX) 5-325 MG TABLET 1 TAB PO (03:48)
--- NOTE | 2023-10-03 06:41 | PM.CNOR ---
Assessment and Plan Assessment and plan (1) Septic joint of left wrist: Code(s): M00.9 - Pyogenic arthritis, unspecified Status: Acute Assessment and Plan: Patient has question of septic wrist left. Waiting cultures at this time. He however has significant number white cells with a left shift. He probably will need debridement and antibiotics. I had radiology aspirate the wrist yesterday and he has been placed on antibiotics. Will follow along discussed. History of Present Illness HPI Consult date: 10/03/23 Chief complaint: Septic Joint Review of Systems Musculoskeletal: Musculoskeletal: Reports arthralgias, Reports joint swelling and Reports stiffness [facility] Past Medical History Medical History Benign prostatic hyperplasia Chronic anemia Chronic anticoagulation Colon polyps Essential hypertension Gastroesophageal reflux disease Herpes zoster Obstructive sleep apnea on CPAP Overactive bladder Rheumatoid arthritis Sciatica Seizure (2012) Spinal stenosis of lumbar region Stage 3b chronic kidney disease Type 2 diabetes mellitus without complication Type 2 dissection of thoracic aorta Venous stasis Vitamin B12 deficiency Vitamin D deficiency Surgical History Surgical History History of colonoscopy with polypectomy History of coronary artery bypass graft History of coronary artery stent placement History of hemorrhoidectomy History of mechanical aortic valve replacement Family History Family History Mother , age 85 Cerebral aneurysm Father , age 70 Arteriosclerotic heart disease Sibling Hypertension Sibling Esophageal reflux Other Family history of cardiovascular disease Social History Social History Social History: Surrogate medical decision maker: Toña Berry, spouse. Code status: Full code. Smoking status: Never smoker Alcohol intake: current Alcohol use details: Social alcohol use in moderation. Substance use: never Substance use type: does not use Do You Feel Safe in your Home?: Yes Lack of Transportation: No Lack of Food: Never True Current Housing: I Have Housing Concerned About Future Housing: No Difficulty Paying Gas/Electric Bills: No Difficulty Paying for Meds: No Currently Unemployed: No Education: Associate Degree Difficulty w/ Childcare or Family Care: No Additional living arrangements comments: Lives with spouse in [place]. Additional occupation/education comments: Retired. Spiritual care concerns: No Meds Home Medications and Allergies Home Medications Medication Instructions Recorded Confirmed Type fluticasone propionate 50 1 spray intranasal PRN PRN Sinus 02/07/20 10/02/23 History mcg/actuation nasal Symptoms spray,suspension atorvastatin 40 mg tablet 40 mg PO DAILY 03/31/20 10/02/23 History warfarin 5 mg tablet 5 mg PO DAILY 03/31/20 10/02/23 History carvedilol 25 mg tablet (Coreg) 12.5 mg PO Q12H 09/03/20 10/02/23 History spironolactone 25 mg tablet 25 mg PO DAILY 01/12/21 10/02/23 History hydralazine 50 mg tablet 75 mg PO BID 06/23/22 10/02/23 History losartan 100 mg tablet 100 mg PO DAILY 06/23/22 10/02/23 History prednisone 5 mg tablet 5 mg PO DAILY 06/23/22 10/02/23 History tamsulosin 0.4 mg capsule 0.4 mg PO DAILY 06/23/22 10/02/23 History Allergies Allergy/AdvReac Type Severity Reaction Status Date / Time hydroxychloroquine Allergy Unknown unknown Verified 10/02/23 07:15 [From Plaquenil] Vital Signs Vital Signs - 24 hr 10/02/23 07:13 10/02/23 08:06 10/02/23 08:15 Temperature 98.3 F Pulse Rate 80 Respiratory Rate 17 Blood Pressure 159/80 H Pulse Oximetry 96 95 90 Oxygen Delivery Room Air 10/02/23 08:16 07
[2023-10-03 06:56] LABS: Estimated CRCL calculation 39 ml/min; Estimated Glomerular Filt Rate 45
[2023-10-03] MEDS: MORPHINE SULFATE (*CRX) 2 MG/ML INJ IV PUSH (08:15)
[2023-10-03] MEDS: TAMSULOSIN HCL 0.4 MG CAPSULE PO (08:21)
[2023-10-03] MEDS: carvediloL 12.5 MG TABLET PO ×2 (08:21→20:33)
[2023-10-03] MEDS: LOSARTAN POTASSIUM 100 MG TABLET PO (08:21)
[2023-10-03] MEDS: hydrALAZINE HCL 25 MG TABLET 75 MG PO ×2 (08:21→20:33)
[2023-10-03] MEDS: predniSONE 5 MG TABLET PO (08:21)
[2023-10-03] MEDS: SPIRONOLACTONE 25 MG TABLET PO (08:22)
[2023-10-03] MEDS: ATORVASTATIN 40 MG TABLET PO (08:22)
--- NOTE | 2023-10-03 08:22 | PM.IMPN ---
Progress Note: A&P Assessment and Plan (1) Septic joint of left wrist: Code(s): M00.9 - Pyogenic arthritis, unspecified Status: Acute Assessment and Plan: 10/03/2023: Left wrist x-ray negative Joint aspiration/injection done in the ED Synovial joint fluid g stain showed no organisms, anaerobic bottle still pending Synovial joint fluid revealed 896,000 synovial RBC, 73,320 synovium Wilkins cells, 92 synovial neutrophils CRP 1.6, ESR 44 Ortho consulted, possible plan for surgery INR down to 3.7 today (2) Supratherapeutic INR: Code(s): R79.1 - Abnormal coagulation profile Status: Acute Assessment and Plan: 10/03/2023: Patient is on Coumadin INR 4.9 initially, now down to 3.7 Will hold Coumadin today (3) Thrombocytopenia: Code(s): D69.6 - Thrombocytopenia, unspecified Status: Acute Assessment and Plan: 10/03/2023: Platelet count 104 Continue to trend (4) Stage 3b chronic kidney disease: Code(s): N18.32 - Chronic kidney disease, stage 3b Status: Acute Assessment and Plan: 10/03/2023: Creatinine 1.5, EGFR 45 Baseline creatinine 1.5 to 1.68 Baseline EGFR 42-45 Continue to trend (5) Chronic anemia: Code(s): D64.9 - Anemia, unspecified Status: Acute Assessment and Plan: 10/03/2023: Hemoglobin 12.2 Will get iron, ferritin, vitamin B12, folate today (6) Essential hypertension: Code(s): I10 - Essential (primary) hypertension Status: Acute Assessment and Plan: 10/03/23: Blood pressure ranging 158/69 to 171/62 Hydralazine, spironolactone, and losartan ordered (7) Rheumatoid arthritis: Code(s): M06.9 - Rheumatoid arthritis, unspecified Status: Acute Assessment and Plan: 10/03/2023: Continue prednisone Time Spent With Patient Time with patient: Greater than 35 minutes Subjective Date/time seen: 10/03/23 08:22 Interval history: This is a 70-year-old male who presented to the hospital 10/02/2023 with complaints of left wrist pain. Workup in the hospital included left wrist x-ray which was negative. Patient had a joint aspiration injection while in the ED. initial labs showed a white blood cell count of 10.6, hemoglobin 12.4, platelet count 104, ESR 44, INR 4.9, creatinine 1.6, EGFR 42, C reactive protein 1.6. Synovial fluid joint aspiration shown synovial RBC 896,000, synovial new could cell count 73,320, synovial neutrophils 92. Synovial fluid culture was negative for any organisms on g stain. Anaerobic culture is still pending. Patient was given pain medication, cefepime, vanc while in the ED. Ortho was consulted Patient denies any fever, chills, nausea, vomiting, diarrhea, abdominal pain,chest pain, shortness of breath. Patient endorses pain in left wrist. INR 3.7 today. Review of Systems Review of Systems: All systems reviewed & are unremarkable except as noted in HPI and below Constitutional: Constitutional: Reports as per HPI and Reports no additional constitutional complaints Eyes: Eyes: Reports as per HPI and Reports no additional eye complaints ENT: Reports system reviewed and no additional complaints, except as documented and Reports as per HPI Cardiovascular: Cardiovascular: Reports as per HPI and Reports no additional cardiovascular complaints Respiratory: Respiratory: Reports as per HPI and Reports no additional respiratory complaints Gastrointestinal: Gastrointestinal: Reports as per HPI and Reports no additional gastrointestinal complaints Genitourinary: Genitourinary: Reports no additional male genitourinary complaints and Reports as per HPI Musculoskeletal: Musculoskeletal: Reports no additional musculoskeletal complaints and Reports as per HPI Integumentary/Breasts: Skin/Breast: Reports system reviewed and no additional complaints, except as docu and Reports as per HPI Neurologic: Reports system reviewed and no additional complaints, except as
[2023-10-03 09:23] LABS: Iron 24 ug/dL (49-181)
[2023-10-03 09:33] LABS: Percent Iron Saturation 9 % (20-50)
[2023-10-03 10:31] LABS: Folic Acid 6.3 ng/mL (2.76->20)
[2023-10-03] MEDS: CEFEPIME 2 GM/NS 50 ML 2 GM/50 ML BAG IVPB (11:20)
[2023-10-03 13:49] LABS: INR 3.7; Prothrombin Time 37.7 Seconds (11.1-14.7)
[2023-10-03] MEDS: ONDANSETRON INJ 4 MG/2 ML VIAL IV PUSH ×2 (17:23→21:08)
[2023-10-03] MEDS: cefTRIAXone 2 GM/NS 100 ML 2 GM/100 ML BAG IVPB (20:30)
[2023-10-03] MEDS: MELATONIN 5 MG TABLET PO (21:03)
[2023-10-03 22:12] LABS: INR 3.3; Prothrombin Time 34.6 Seconds (11.1-14.7)
[2023-10-03] MEDS: VANCOMYCIN 1,500 MG/NS 500 ML 1,500 MG/500 ML BAG 250 MG IVPB (22:28)
[2023-10-04] VITALS (18 sets, daily range): BP systolic 107–182; BP diastolic 53–82; PULSE 59–82; RESP 13–21; TEMP 35.7–37.1; O2SAT 92–100
[2023-10-04 06:26] LABS: Basophils Percent Auto 0.5 % (0.2-1.2); Eosinophils Absolute Auto 0.1 K/mm3 (0-0.3); Eosinophils Percent Auto 0.9 % (0-4.4); Hematocrit 36.6 % (42.0-52.0); Hemoglobin 11.7 g/dL (14.0-18.0); Immature Granulocyte Absolute 0.03 K/mm3 (0.00-0.031); Immature Granulocyte Percent A 0.4 % (0-0.5); Immature Platelet Fraction Pct 8.2 % (0.9-11.2); Lymphocytes Absolute Auto 1.56 K/mm3 (0.9-3.2); Lymphocytes Percent Auto 20.6 % (18.3-44.2); Mean Corpuscular Hemoglobin 32.7 pg (26-34); Mean Corpuscular Volume 102.2 fl (80-100); Mean Platelet Volume 11.6 fl (7.4-10.4); Monocytes Absolute Auto 1.2 K/mm3 (0.1-0.6); Monocytes Percent Auto 15.3 % (2.6-8.5); Neutrophils Absolute Auto 4.7 K/mm3 (1.3-6.7); Neutrophils Percent Auto 62.3 % (45.5-73.1); Platelet Count Result 93 k/mm3 (150-375); Red Blood Count 3.58 M/mm3 (4.6-6.20); Red Cell Distribution Width 12.8 % (11.5-14.5); White Blood Count 7.6 K/mm3 (4.5-10.0)
[2023-10-04 06:40] LABS: Alanine Aminotransferase 13 U/L (6-50); Albumin Level 3.4 g/dL (3.5-5.1); Alkaline Phosphatase 47 U/L (38-126); Anion Gap 6 mmol/L (4-12); Aspartate Amino Transferase 23 U/L (17-59); Bilirubin,Total 0.7 mg/dL (0.2-1.3); Blood Urea Nitrogen 29 mg/dL (9-20); Calcium 9.3 mg/dL (8.4-10.2); Carbon Dioxide 24 mmol/L (22-30); Chloride 107 mmol/L (98-107); Estimated CRCL calculation 39 ml/min; Estimated Glomerular Filt Rate 45; Glucose 89 mg/dL (65-110); Potassium 3.9 mmol/L (3.4-5.0); Sodium 137 mmol/L (137-145)
[2023-10-04 07:31] LABS: INR 3.1; Prothrombin Time 32.4 Seconds (11.1-14.7)
[2023-10-04] MEDS: carvediloL 12.5 MG TABLET PO ×2 (09:31→20:02)
[2023-10-04] MEDS: predniSONE 5 MG TABLET PO (09:31)
--- NOTE | 2023-10-04 11:52 | PC.NURSE ---
Addendum entered by Aissatou Araya RN 10/04/23 16:24: Patient went to OR at 1140. Original Note: To OR per stretcher, IV saline locked. Report given to MUSA Snow.
--- NOTE | 2023-10-04 12:11 | SUR.PREOP ---
Pt INR is 3.1. Reviewed with Dr. Patel and blossom Madden to proceed. Pt was given scheduled antibiotics on floor, no additional antibiotics needed per Dr. Patel
[2023-10-04 12:18] LABS: Glucose Point of Care 94 mg/dl (65-105)
--- NOTE | 2023-10-04 12:37 | WPDHPUPDATE1 ---
History and Physical Update Update Date/Time: 10/04/23 12:37 History and Physical has been reviewed, including an updated exam of the patient. There are NO changes in the patient's condition. Risks, benefits, and alternatives have been discussed and questions answered. Patient agrees to proceed with procedure.
--- NOTE | 2023-10-04 12:41 | WPDANESEPPF ---
Anes - Initial Pre Proc Eval Procedure: Operation Date: 10/04/23 13:00 Proposed Procedures p Incision and Drainage Left Wrist - Solo Patel MD Date/Time: 10/04/23 12:41 Surgeon: Liudmila Alvarado APRN Pre Op Diagnosis: Septic Joint Patient Data Age: 78 Gender: M Height: 1.8 m Weight: 92 kg Last Vital Signs Temp 36.8 C 10/04/23 12:07 Pulse 73 10/04/23 12:07 Resp 16 10/04/23 12:07 BP 135/82 10/04/23 12:07 Pulse Ox 93 10/04/23 12:07 O2 Del Method Room Air 10/04/23 12:07 FiO2 21 10/03/23 08:22 Allergies Allergy/AdvReac Type Severity Reaction Status Date / Time hydroxychloroquine Allergy Unknown unknown Verified 10/04/23 11:49 [From Plaquenil] Home Medications Medication Instructions Recorded Confirmed Type fluticasone propionate 50 1 spray intranasal PRN PRN Sinus 02/07/20 10/02/23 History mcg/actuation nasal Symptoms spray,suspension atorvastatin 40 mg tablet 40 mg PO DAILY 03/31/20 10/02/23 History warfarin 5 mg tablet 5 mg PO DAILY 03/31/20 10/02/23 History carvedilol 25 mg tablet (Coreg) 12.5 mg PO Q12H 09/03/20 10/02/23 History spironolactone 25 mg tablet 25 mg PO DAILY 01/12/21 10/02/23 History hydralazine 50 mg tablet 75 mg PO BID 06/23/22 10/02/23 History losartan 100 mg tablet 100 mg PO DAILY 06/23/22 10/02/23 History prednisone 5 mg tablet 5 mg PO DAILY 06/23/22 10/02/23 History tamsulosin 0.4 mg capsule 0.4 mg PO DAILY 06/23/22 10/02/23 History Laboratory Tests 10/03/23 10/03/23 10/04/23 13:20 21:03 05:12 WBC 7.6 K/mm3 (4.5-10.0) RBC 3.58 L M/mm3 (4.6-6.20) Hgb 11.7 L g/dL (14.0-18.0) Hct 36.6 L % (42.0-52.0) MCV 102.2 H fl (80-100) MCH 32.7 pg (26-34) MCHC 32.0 g/dl (32-36) RDW 12.8 % (11.5-14.5) Plt Count 93 L k/mm3 (150-375) MPV 11.6 H fl (7.4-10.4) Immature Gran % (Auto) 0.4 % (0-0.5) Neut % (Auto) 62.3 % (45.5-73.1) Lymph % (Auto) 20.6 % (18.3-44.2) [place] % (Auto) 15.3 H % (2.6-8.5) Eos % (Auto) 0.9 % (0-4.4) Baso % (Auto) 0.5 % (0.2-1.2) Lymph # (Auto) 1.56 K/mm3 (0.9-3.2) [place] # (Auto) 1.2 H K/mm3 (0.1-0.6) Eos # (Auto) 0.1 K/mm3 (0-0.3) Baso # (Auto) 0.0 K/mm3 (0.0-0.1) Abs Immat Gran (auto) 0.03 K/mm3 (0.00-0.031) Absolute Neuts (auto) 4.7 K/mm3 (1.3-6.7) Absolute Nucleated RBC 0.000 K/mm3 (0.0-0.012) Nucleated RBC % 0.0 % (0.0-0.2) % Immature Plt Fraction 8.2 % (0.9-11.2) PT 37.7 H Seconds 34.6 H Seconds (11.1-14.7) (11.1-14.7) INR 3.7 3.3 Sodium 137 mmol/L (137-145) Potassium 3.9 mmol/L (3.4-5.0) Chloride 107 mmol/L (98-107) Carbon Dioxide 24 mmol/L (22-30) Anion Gap 6 mmol/L (4-12) BUN 29 H mg/dL (9-20) Creatinine 1.50 H mg/dL (0.7-1.3) Estim Creat Clear Calc 39 ml/min Estimated GFR 45 L (59 - ) Glucose 89 mg/dL (65-110) POC Capillary Glucose Calcium 9.3 mg/dL (8.4-10.2) Total Bilirubin 0.7 mg/dL (0.2-1.3) AST 23 U/L (17-59) ALT 13 U/L (6-50) Alkaline Phosphatase 47 U/L (38-126) Total Protein 6.0 L g/dL (6.3-8.2) Albumin 3.4 L g/dL (3.5-5.1) 10/04/23 10/04/23 06:58 12:15 WBC RBC Hgb Hct MCV MCH MCHC RDW Plt Count MPV Immature Gran % (Auto) Neut % (Auto) Lymph % (Auto) [place] % (Auto) Eos % (Auto) Baso % (Auto) Lymph # (Auto) [place] # (Auto) Eos # (Auto) Baso # (Auto) Abs Immat Gran (auto) Absolute Ne
[2023-10-04] MEDS: ceFAZolin SODIUM 1 GM VIAL IM (13:02)
--- NOTE | 2023-10-04 13:20 | W.PM.PROC2 ---
Procedure Note - Detailed Date of Procedure 10/04/23 Pre-op Diagnosis Septic Joint LEFT wrist Post-op Diagnosis Same Procedure Performed Irrigation and debridement with cultures Surgeon Solo Patel MD Anesthesia General Description of Procedure Patient brought to operating room 5. General anesthetic was administered. He was sterilely draped and draped in usual manner. Longitudinal incision made over the wrist. Dissection carried down over the extensor retinaculum. This was split and that allowed access to the joint protecting tendons. The joint was then entered and irrigated with bulb irrigation. Cultures were taken before the irrigation. The wound then closed with 2-0 Vicryl and 3-0 Prolene sterile dressing applied patient tolerated procedure well. Estimated Blood Loss 2 Urine Output 600 Packing No Pathology Other (Cultures) Complications No immediate complications Condition Stable Disposition PACU [facility] Billing Surgery - Charge Forward: Surgery Billing ([id number], I& D Wrist???)
[2023-10-04] MEDS: LACTATED RINGERS 1,000 ML 30 ML IV CONT (13:26)
[2023-10-04] MEDS: fentaNYL CITRATE INJ (*CRX) 100 MCG/2 ML VIAL 25 MCG IV PUSH ×8 (13:50→14:30)
[2023-10-04] MEDS: HYDROmorphone HCL INJ (*CRX) 1 MG/ML SYR IV PUSH (14:50)
[2023-10-04] MEDS: SODIUM CHLORIDE 0.45% 1,000 ML 80 ML IV CONT (15:52)
[2023-10-04] MEDS: ONDANSETRON INJ 4 MG/2 ML VIAL IV PUSH ×2 (15:52→20:03)
--- NOTE | 2023-10-04 16:22 | PC.NURSE ---
Addendum entered by Aissatou Araya RN 10/04/23 16:23: Patient returned to room at 1515. Original Note: Returned from OR per stretcher. Report received from MUSA Griffin.
--- NOTE | 2023-10-04 16:35 | WPDPN ---
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 will follow up and plan. 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 will follow up and plan. Review of Systems Review of Systems: All systems reviewed & are unremarkable except as noted in HPI and below Constitutional: Constitutional: Reports as per HPI and Reports no additional constitutional complaints Eyes: Eyes: Reports as per HPI and Reports no additional eye complaints ENT: Reports system reviewed and no additional complaints, except as documented and Reports as per HPI Cardiovascular: Cardiovascular: Reports as per HPI and Reports no additional cardiovascular complaints Respiratory: Respiratory: Reports as per HPI and Reports no additional respiratory complaints Gastrointestinal: Gastrointestinal: Reports as per HPI and Reports no additional gastrointestinal complaints Genitourinary: Genitourinary: Reports no additional male genitourinary complaints and Reports as per HPI Musculoskeletal: Musculoskeletal: Reports no additional musculoskeletal complaints and Reports as per HPI Integumentary/Breasts: Skin/Breast: Reports system reviewed and no additional complaints, except as docu and Reports as per HPI Neurologic: Reports system reviewed and no additional complaints, except as documented and Reports as per HPI Psychiatric: Psychiatric: Reports no additional psychiatric complaints and Reports as per HPI Exam Narrative: General: patient is comfortable NAD HEENT: eyes are clear nonicteric, normocephalic, atraumatic. Oral mucosa moist. RESP: CTA HEART: RR S1S2 LUNGS: CTA ABD: BS+, non tender. SKIN: no obvious rash EXTREMITIES: no edema NEURO:A&O grossly intact PSYCH: Pleasant and cooperative with normal mood and affect Objective Data Vital Signs Vital Signs: Vital Signs - 24 hr 10/03/23 20:33 10/03/23 21:14 10/03/23 20:00 Temperature 36.9 C Pulse Rate 67 67 Respiratory Rate 12 Blood Pressure 160/63 H Pulse Oximetry 93 Oxygen Delivery Room Air Oxygen Flow Rate 10/04/23 05:07 10/04/23 12:07 10/04/23 13:26 Temperature 36.4 C L 36.8 C 36.2 C L Pulse Rate 78 73 63 Respiratory Rate 14 16 15 Blood Pressure 145/68 H 135/82 176/75 H Pulse Oximetry 93 93 100 Oxygen Delivery Room Air Simple Face Mask Oxygen Flow Rate 8 10/04/23 13:40 10/04/23 13:55 10/04/23 14:10 Temperature Pulse Rate 59 L 60 59 L Respiratory Rate 15 21 H 17 Blood Pressure 182/63 H 180/67 H 166/64 H Pulse Oximetry 95 95 95 Oxygen Delivery Room Air Room Air Cassandra
[2023-10-04] MEDS: HYDROcodone/acetaminophen (*CRX) 5-325 MG TABLET 1 TAB PO (17:42)
[2023-10-04] MEDS: PHENYLEPH/MINERAL OIL/PETROLAT OINTMENT 57 GM 1 APPLIC RECTAL (17:43)
[2023-10-04] MEDS: TAMSULOSIN HCL 0.4 MG CAPSULE PO (17:43)
[2023-10-04] MEDS: LOSARTAN POTASSIUM 100 MG TABLET PO (17:43)
[2023-10-04] MEDS: cefTRIAXone 2 GM/NS 100 ML 2 GM/100 ML BAG IVPB (20:02)
[2023-10-04] MEDS: hydrALAZINE HCL 25 MG TABLET 75 MG PO (20:02)
[2023-10-04] MEDS: MELATONIN 5 MG TABLET PO (21:12)
[2023-10-04] MEDS: ACETAMINOPHEN 325 MG TABLET 650 MG PO (21:18)
[2023-10-05] MEDS: ACETAMINOPHEN 325 MG TABLET 650 MG PO ×2 (04:30→21:17)
[2023-10-05] MEDS: ONDANSETRON INJ 4 MG/2 ML VIAL IV PUSH (04:30)
[2023-10-05] MEDS: SODIUM CHLORIDE 0.45% 1,000 ML 80 ML IV CONT (05:35)
[2023-10-05 05:44] VITALS: BP 136/57; PULSE 60; RESP 14; TEMP 36.3; O2SAT 95
[2023-10-05 06:10] LABS: Basophils Percent Auto 0.1 % (0.2-1.2); Hematocrit 34.7 % (42.0-52.0); Hemoglobin 11.3 g/dL (14.0-18.0); Immature Granulocyte Absolute 0.02 K/mm3 (0.00-0.031); Immature Granulocyte Percent A 0.3 % (0-0.5); Immature Platelet Fraction Pct 8.5 % (0.9-11.2); Lymphocytes Absolute Auto 0.91 K/mm3 (0.9-3.2); Lymphocytes Percent Auto 11.9 % (18.3-44.2); Mean Corpuscular HGB Conc 32.6 g/dl (32-36); Mean Corpuscular Hemoglobin 32.8 pg (26-34); Mean Corpuscular Volume 100.9 fl (80-100); Mean Platelet Volume 11.8 fl (7.4-10.4); Monocytes Absolute Auto 0.7 K/mm3 (0.1-0.6); Monocytes Percent Auto 9.6 % (2.6-8.5); Neutrophils Percent Auto 78.1 % (45.5-73.1); Platelet Count Result 104 k/mm3 (150-375); Red Blood Count 3.44 M/mm3 (4.6-6.20); Red Cell Distribution Width 12.6 % (11.5-14.5); White Blood Count 7.7 K/mm3 (4.5-10.0)
[2023-10-05 06:17] LABS: Alanine Aminotransferase 12 U/L (6-50); Albumin Level 3.2 g/dL (3.5-5.1); Alkaline Phosphatase 47 U/L (38-126); Anion Gap 4 mmol/L (4-12); Aspartate Amino Transferase 22 U/L (17-59); Bilirubin,Total 0.4 mg/dL (0.2-1.3); Blood Urea Nitrogen 38 mg/dL (9-20); Carbon Dioxide 23 mmol/L (22-30); Chloride 106 mmol/L (98-107); Estimated CRCL calculation 35 ml/min; Estimated Glomerular Filt Rate 39; Glucose 137 mg/dL (65-110); Magnesium 1.8 mg/dL (1.6-2.3); Potassium 4.2 mmol/L (3.4-5.0); Sodium 133 mmol/L (137-145)
[2023-10-05 06:32] LABS: INR 2.9
--- NOTE | 2023-10-05 07:30 | PM.PNORT ---
Progress Note: A&P Assessment and Plan (1) Septic joint of left wrist: Code(s): M00.9 - Pyogenic arthritis, unspecified Status: Acute Assessment and Plan: Septic Wrist. Culture negative. Subjective Subjective Date/Time Seen: 10/05/23 07:30 Post Op day: 1 Principal diagnosis: SEPTIC WRIST Review of Systems Review of Systems: All systems reviewed & are unremarkable except as noted in HPI and below Constitutional: Constitutional: Reports as per HPI and Reports no additional constitutional complaints Eyes: Eyes: Reports as per HPI and Reports no additional eye complaints ENT: Reports system reviewed and no additional complaints, except as documented and Reports as per HPI Cardiovascular: Cardiovascular: Reports as per HPI and Reports no additional cardiovascular complaints Respiratory: Respiratory: Reports as per HPI and Reports no additional respiratory complaints Gastrointestinal: Gastrointestinal: Reports as per HPI and Reports no additional gastrointestinal complaints Genitourinary: Genitourinary: Reports no additional male genitourinary complaints and Reports as per HPI Musculoskeletal: Musculoskeletal: Reports no additional musculoskeletal complaints and Reports as per HPI Integumentary/Breasts: Skin/Breast: Reports system reviewed and no additional complaints, except as docu and Reports as per HPI Neurologic: Reports system reviewed and no additional complaints, except as documented and Reports as per HPI Psychiatric: Psychiatric: Reports no additional psychiatric complaints and Reports as per HPI Exam Narrative: WIGGLES FINGERS. NVI Objective Data Vital Signs Vital Signs: Vital Signs - 24 hr 10/04/23 12:07 10/04/23 13:26 10/04/23 13:40 Temperature 98.2 F 97.1 F L Pulse Rate 73 63 59 L Respiratory Rate 16 15 15 Blood Pressure 135/82 176/75 H 182/63 H Pulse Oximetry 93 100 95 Oxygen Delivery Room Air Simple Face Mask Room Air Oxygen Flow Rate 8 10/04/23 13:55 10/04/23 14:10 10/04/23 14:25 Temperature Pulse Rate 60 59 L 59 L Respiratory Rate 21 H 17 17 Blood Pressure 180/67 H 166/64 H 174/59 H Pulse Oximetry 95 95 98 Oxygen Delivery Room Air Room Air Room Air Oxygen Flow Rate 10/04/23 14:40 10/04/23 14:55 10/04/23 15:00 Temperature Pulse Rate 65 64 64 Respiratory Rate 13 14 14 Blood Pressure 164/63 H 155/69 H 171/67 H Pulse Oximetry 93 92 95 Oxygen Delivery Room Air Room Air Nasal Cannula Oxygen Flow Rate 2 10/04/23 15:15 10/04/23 15:30 10/04/23 16:00 Temperature 96.3 F L 97.2 F L 97.1 F L Pulse Rate 64 60 65 Respiratory Rate 16 16 16 Blood Pressure 169/54 H 144/59 H 160/66 H Pulse Oximetry 100 98 100 Oxygen Delivery Oxygen Flow Rate 10/04/23 08:00 10/04/23 17:00 10/04/23 20:02 Temperature 97.4 F L Pulse Rate 68 68 Respiratory Rate 16 Blood Pressure 160/67 H Pulse Oximetry 93 97 Oxygen Delivery Room Air Oxygen Flow Rate 10/04/23 20:00 10/04/23 20:00 10/04/23 23:46 Temperature 97.5 F L 98.8 F Pulse Rate 61 82 Respiratory Rate 13 14 Blood Pressure 159/68 H 107/53 L Pulse Oximetry 97 97 96 Oxygen Delivery Nasal Cannula Oxygen Flow Rate 2.5 10/05/23 05:44 Temperature 97.3 F L Pulse Rate 60 Respiratory Rate 14 Blood Pressure 136/57 L Pulse Oximetry 95 Oxygen Delivery Oxygen Flow Rate Intake/Output Intake/Output: Intake & Output 10/02/23 10/03/23 10/04/23 10/05/23 23:59 23:59 23:59 23:59 Intake Total 600 365 817 8757 Output Total 1200 400 Balance 600 640 -620 1100 Meds/Results Medications: Active Medications Generic Name Dose Route Start Last Admin Trade Name Freq PRN Reason Stop Dose Admin Acetaminophen 650 mg 10/02/23 16:17 10/05/23 04:30 Acetaminophen 325 Mg Tablet PO 650 mg Q6H PRN Administration Mild Pain (1-3) or Fever Hydrocodone Bitart/Acetaminophen 1 tab 10/02/23 16:17 10/04/23 17:42 Hydrocodone/Acetaminophen (*Crx) 5-325 Mg Tabl
[2023-10-05] MEDS: FLUTICASONE PROPIONATE 0.05% NA SPR 16 GM BTL (*BKC) 1 SPRAY NASAL (08:28)
[2023-10-05 08:29] VITALS: PULSE 60
[2023-10-05] MEDS: ATORVASTATIN 40 MG TABLET PO (08:29)
[2023-10-05] MEDS: hydrALAZINE HCL 25 MG TABLET 75 MG PO ×2 (08:29→20:23)
[2023-10-05] MEDS: SPIRONOLACTONE 25 MG TABLET PO (08:29)
[2023-10-05] MEDS: TAMSULOSIN HCL 0.4 MG CAPSULE PO (08:29)
[2023-10-05] MEDS: carvediloL 12.5 MG TABLET PO ×2 (08:29→20:22)
[2023-10-05] MEDS: LOSARTAN POTASSIUM 100 MG TABLET PO (08:29)
[2023-10-05] MEDS: predniSONE 5 MG TABLET PO (08:29)
[2023-10-05] MEDS: PHENYLEPH/MINERAL OIL/PETROLAT OINTMENT 57 GM 1 APPLIC RECTAL (08:30)
[2023-10-05 10:56] LABS: Vancomycin Trough 7.9 ug/mL (10.0-20.0)
[2023-10-05] MEDS: VANCOMYCIN 1,500 MG/NS 500 ML 1,500 MG/500 ML BAG 250 MG IVPB (11:42)
--- NOTE | 2023-10-05 13:15 | WPDANESPN ---
Anes - Prog Note Post-Op Date/Time: 10/05/23 13:15 Cardiovascular status: normal Respiratory status: normal Airway patency: baseline Mental status: baseline Post-Op hydration status: normal Vital Signs: Last Vital Signs Temp 36.3 C L 10/05/23 05:44 Pulse 60 10/05/23 08:29 Resp 14 10/05/23 05:44 BP 136/57 L 10/05/23 05:44 Pulse Ox 95 10/05/23 05:44 O2 Del Method Room Air 10/05/23 08:00 O2 Flow Rate 2.5 10/04/23 20:00 FiO2 21 10/03/23 08:22 Pain Score (VAS): 06/10 I/O: Intake & Output 10/04/23 10/05/23 10/05/23 23:59 07:59 15:59 Intake Total 340 2000 120 Output Total 400 Balance 340 1600 120 Laboratory Tests 10/05/23 05:30 10/05/23 05:30 10/05/23 10/05/23 05:30 10:03 WBC 7.7 RBC 3.44 L Hgb 11.3 L Hct 34.7 L MCV 100.9 H MCH 32.8 MCHC 32.6 RDW 12.6 Plt Count 104 L MPV 11.8 H Immature Gran % (Auto) 0.3 Neut % (Auto) 78.1 H Lymph % (Auto) 11.9 L [place] % (Auto) 9.6 H Eos % (Auto) 0.0 Baso % (Auto) 0.1 L Lymph # (Auto) 0.91 [place] # (Auto) 0.7 H Eos # (Auto) 0.0 Baso # (Auto) 0.0 Abs Immat Gran (auto) 0.02 Absolute Neuts (auto) 6.0 Absolute Nucleated RBC 0.000 Nucleated RBC % 0.0 % Immature Plt Fraction 8.5 PT 31.0 H INR 2.9 Sodium 133 L Potassium 4.2 Chloride 106 Carbon Dioxide 23 Anion Gap 4 BUN 38 H Creatinine 1.70 H Estim Creat Clear Calc 35 Estimated GFR 39 L Glucose 137 H Calcium 9.0 Magnesium 1.8 Total Bilirubin 0.4 AST 22 ALT 12 Alkaline Phosphatase 47 Total Protein 6.0 L Albumin 3.2 L Vancomycin Trough 7.9 L Microbiology 10/04/23 13:16 Wrist Left Anaerobic Culture - Preliminary 10/04/23 13:13 Wrist Left Anaerobic Culture - Preliminary Post-procedural complaints: none Patient Feedback: Patient satisfied with anesthetic care.
[2023-10-05 14:00] VITALS: BP 130/51; PULSE 64; RESP 18; TEMP 36.2; O2SAT 95
[2023-10-05 14:24] VITALS: O2SAT 94
[2023-10-05] MEDS: WARFARIN (*PBKC) 5 MG TABLET PO (16:33)
--- NOTE | 2023-10-05 16:41 | WPDPN ---
Progress Note: A&P Assessment and Plan (1) Chronic anticoagulation: Code(s): Z79.01 - local [employer] (current) use of anticoagulants Status: Acute Assessment and Plan: patient with mechanical valve on warfarin, s/p left wrist wound I & D and irrigation. will monitor (2) Septic joint of left wrist: Code(s): M00.9 - Pyogenic arthritis, unspecified Status: Acute Assessment and Plan: Interval history 10/05/2023: patient had I & D and left wrist wound was irrigated by his surgeon patient tolerated the procedure, will follow up wound culture pending so far. surgeon has agreed to resume patient warfarin and patient has mechanical valve. will monitor, patient is present in the room. (3) Stage 3b chronic kidney disease: Code(s): N18.32 - Chronic kidney disease, stage 3b Status: Acute Assessment and Plan: patient with acute on chronic kidney disease, patient Scr is rising, will increase IVF to 125ml/hr from 80/hr, will encourage oral intact, will monitor kidney function. 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 will follow up and plan. Interval history 10/05/2023: patient had I & D and left wrist wound was irrigated by his surgeon patient tolerated the procedure, will follow up wound culture pending so far. surgeon has agreed to resume patient warfarin and patient has mechanical valve. will monitor, patient is present in the room. Review of Systems Review of Systems: All systems reviewed & are unremarkable except as noted in HPI and below Constitutional: Constitutional: Reports as per HPI and Reports no additional constitutional complaints Eyes: Eyes: Reports as per HPI and Reports no additional eye complaints ENT: Reports system reviewed and no additional complaints, except as documented and Reports as per HPI Cardiovascular: Cardiovascular: Reports as per HPI and Reports no additional cardiovascular complaints Respiratory: Respiratory: Reports as per HPI and Reports no additional respiratory complaints Gastrointestinal: Gastrointestinal: Reports as per HPI and Reports no additional gastrointestinal complaints Genitourinary: Genitourinary: Reports no additional male genitourinary complaints and Reports as per HPI Musculoskeletal: Musculoskeletal: Reports no additional musculoskeletal complaints and Reports as per HPI Integumentary/Breasts: Skin/Breast: Reports system reviewed and no additional complaints, except as docu and Reports as per HPI Neurologic: Reports system reviewed and no additional complaints, except as documented and Reports as per HPI Psychiatric: Psychiatric: Reports no additional psychiatric complaints and Reports as per HPI Exam Narrative: General: patient is comfortable NAD HEENT: eyes are clear nonicteric, normocephalic, atraumatic. Oral mucosa moist. RESP: CTA HEART: RR S1S2 LUNGS: CTA ABD: BS+, non tender. SKIN: no obvious rash EXTREMITIES: no edema NEURO:A&O grossly intact PSYCH: Pleasant and cooperative with normal mood and affect MS: left wrist in surgical dressing. Objective Data Vital Signs Vital Signs: Vital Signs - 24 hr 10/04/23 17:00 10/04/23 20:02 10/04/23 20:
[2023-10-05] MEDS: SODIUM CHLORIDE 0.45% 1,000 ML 125 ML IV CONT ×2 (17:07→21:41)
[2023-10-05] MEDS: cefTRIAXone 2 GM/NS 100 ML 2 GM/100 ML BAG IVPB (20:23)
[2023-10-05 21:51] VITALS: BP 145/62; PULSE 60; RESP 18; TEMP 36.4; O2SAT 95
[2023-10-06] MEDS: HYDROcodone/acetaminophen (*CRX) 5-325 MG TABLET 1 TAB PO (01:35)
[2023-10-06] MEDS: MELATONIN 5 MG TABLET PO ×2 (01:36→22:01)
[2023-10-06] MEDS: VANCOMYCIN 1,500 MG/NS 500 ML 1,500 MG/500 ML BAG 250 MG IVPB (04:51)
[2023-10-06 06:46] LABS: Basophils Percent Auto 0.4 % (0.2-1.2); Eosinophils Percent Auto 0.4 % (0-4.4); Hematocrit 30.8 % (42.0-52.0); Hemoglobin 10.4 g/dL (14.0-18.0); Immature Granulocyte Absolute 0.03 K/mm3 (0.00-0.031); Immature Granulocyte Percent A 0.4 % (0-0.5); Immature Platelet Fraction Pct 7.3 % (0.9-11.2); Lymphocytes Absolute Auto 1.35 K/mm3 (0.9-3.2); Lymphocytes Percent Auto 16.2 % (18.3-44.2); Mean Corpuscular HGB Conc 33.8 g/dl (32-36); Mean Corpuscular Hemoglobin 33.4 pg (26-34); Mean Platelet Volume 11.6 fl (7.4-10.4); Monocytes Absolute Auto 0.9 K/mm3 (0.1-0.6); Monocytes Percent Auto 10.3 % (2.6-8.5); Neutrophils Percent Auto 72.3 % (45.5-73.1); Platelet Count Result 95 k/mm3 (150-375); Red Blood Count 3.11 M/mm3 (4.6-6.20); Red Cell Distribution Width 12.7 % (11.5-14.5); White Blood Count 8.3 K/mm3 (4.5-10.0)
[2023-10-06 06:56] LABS: Alanine Aminotransferase 12 U/L (6-50); Albumin Level 3.2 g/dL (3.5-5.1); Alkaline Phosphatase 46 U/L (38-126); Anion Gap 3 mmol/L (4-12); Aspartate Amino Transferase 22 U/L (17-59); Bilirubin,Total 0.4 mg/dL (0.2-1.3); Blood Urea Nitrogen 41 mg/dL (9-20); Calcium 8.8 mg/dL (8.4-10.2); Carbon Dioxide 23 mmol/L (22-30); Chloride 111 mmol/L (98-107); Estimated CRCL calculation 37 ml/min; Estimated Glomerular Filt Rate 42; Glucose 96 mg/dL (65-110); Magnesium 1.8 mg/dL (1.6-2.3); Sodium 137 mmol/L (137-145)
[2023-10-06 06:59] LABS: INR 2.8; Prothrombin Time 29.9 Seconds (11.1-14.7)
--- NOTE | 2023-10-06 08:38 | PM.PNORT ---
Progress Note: A&P Assessment and Plan (1) Septic joint of left wrist: Code(s): M00.9 - Pyogenic arthritis, unspecified Status: Acute Assessment and Plan: Patient has appears to be a septic left wrist. He is not growing anything with his heart valve I find it reasonable to place him on antibiotics for. Time particularly with 70,000 white cells in his aspiration. I discussed this with pharmacy we have agreed that the perhaps a combination of Keflex and doxycycline would be good to protect him from the most common organism. This should run for a period of about 6 weeks. Subjective Subjective Date/Time Seen: 10/06/23 08:38 Post Op day: 2 Principal diagnosis: Septic Wrist Review of Systems Review of Systems: All systems reviewed & are unremarkable except as noted in HPI and below Constitutional: Constitutional: Reports as per HPI and Reports no additional constitutional complaints Eyes: Eyes: Reports as per HPI and Reports no additional eye complaints ENT: Reports system reviewed and no additional complaints, except as documented and Reports as per HPI Cardiovascular: Cardiovascular: Reports as per HPI and Reports no additional cardiovascular complaints Respiratory: Respiratory: Reports as per HPI and Reports no additional respiratory complaints Gastrointestinal: Gastrointestinal: Reports as per HPI and Reports no additional gastrointestinal complaints Genitourinary: Genitourinary: Reports no additional male genitourinary complaints and Reports as per HPI Musculoskeletal: Musculoskeletal: Reports no additional musculoskeletal complaints and Reports as per HPI Integumentary/Breasts: Skin/Breast: Reports system reviewed and no additional complaints, except as docu and Reports as per HPI Neurologic: Reports system reviewed and no additional complaints, except as documented and Reports as per HPI Psychiatric: Psychiatric: Reports no additional psychiatric complaints and Reports as per HPI Exam Narrative: NVI. Dressing intact. Resp: Effort & Inspection: normal respiratory effort Cardio: Rate: regular rate Rhythm: regular rhythm Objective Data Vital Signs Vital Signs: Vital Signs - 24 hr 10/05/23 14:00 10/05/23 14:24 10/05/23 20:00 Temperature 97.2 F L Pulse Rate 64 Respiratory Rate 18 Blood Pressure 130/51 L Pulse Oximetry 95 94 Oxygen Delivery Room Air Room Air 10/05/23 21:51 Temperature 97.6 F Pulse Rate 60 Respiratory Rate 18 Blood Pressure 145/62 H Pulse Oximetry 95 Oxygen Delivery Intake/Output Intake/Output: Intake & Output 10/03/23 10/04/23 10/05/2305/24 23:59 23:59 23:59 23:59 Intake Total 200 283 7597.5 425 Output Total 9060 996 8140 Balance 640 -520 3953.5 -1025 Meds/Results Medications: Active Medications Generic Name Dose Route Start Last Admin Trade Name Freq PRN Reason Stop Dose Admin Acetaminophen 650 mg 10/02/23 16:17 10/05/23 21:17 Acetaminophen 325 Mg Tablet PO 650 mg Q6H PRN Administration Mild Pain (1-3) or Fever Hydrocodone Bitart/Acetaminophen 1 tab 10/02/23 16:17 10/06/23 01:35 Hydrocodone/Acetaminophen (*Crx) 5-325 Mg Tablet PO 1 tab Q6H PRN Administration Pain Rated 4-6 Atorvastatin Calcium 40 mg 10/03/23 09:00 10/05/23 08:29 Atorvastatin 40 Mg Tablet PO 40 mg DAILY SIMON Administration Carvedilol 12.5 mg 10/02/23 21:00 10/05/23 20:22 Carvedilol 12.5 Mg Tablet PO 12.5 mg Q12HR SIMON Administration Fentanyl Citrate 25 mcg 10/04/23 12:42 10/04/23 14:30 Fentanyl Citrate Inj (*Crx) 100 Mcg/2 Ml Vial IV PUSH 25 mcg Q2M PRN Administration Pain Fluticasone Propionate 1 spray 10/02/23 16:18 10/05/23 08:28 Fluticasone Propionate 0.05% Na Spr 16 Gm Btl (*Bkc) NASAL 1 spray Q12H PRN Administration Sinus Symptoms Hydralazine HCl 75 mg 10/02/23 21:00 10/05/23 20:23 Hydralazine Hcl 25 Mg Tablet PO 75 mg Q12HR SIMON Administrat
[2023-10-06 08:55] VITALS: PULSE 70
[2023-10-06] MEDS: hydrALAZINE HCL 25 MG TABLET 75 MG PO ×2 (08:55→22:00)
[2023-10-06] MEDS: SPIRONOLACTONE 25 MG TABLET PO (08:55)
[2023-10-06] MEDS: carvediloL 12.5 MG TABLET PO ×2 (08:55→22:00)
[2023-10-06] MEDS: ATORVASTATIN 40 MG TABLET PO (08:56)
[2023-10-06] MEDS: predniSONE 5 MG TABLET PO (08:56)
[2023-10-06] MEDS: LOSARTAN POTASSIUM 100 MG TABLET PO (08:56)
[2023-10-06] MEDS: TAMSULOSIN HCL 0.4 MG CAPSULE PO (08:56)
[2023-10-06] MEDS: SODIUM CHLORIDE 0.45% 1,000 ML 125 ML IV CONT ×2 (08:57→21:59)
[2023-10-06] MEDS: PHENYLEPH/MINERAL OIL/PETROLAT OINTMENT 57 GM 1 APPLIC RECTAL (08:58)
[2023-10-06] MEDS: DOXYCYCLINE HYCLATE 100 MG TABLET PO ×2 (09:05→22:00)
[2023-10-06 14:00] VITALS: BP 135/55; PULSE 64; RESP 18; TEMP 36.4; O2SAT 95
[2023-10-06] MEDS: CEPHALEXIN 500 MG CAPSULE 1000 MG PO ×2 (14:18→22:00)
--- NOTE | 2023-10-06 16:24 | WPDPN ---
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 will monitor (2) Septic joint of left wrist: Code(s): M00.9 - Pyogenic arthritis, unspecified Status: Acute Assessment and Plan: Interval history 10/05/2023: patient had I & D and left wrist wound was irrigated by his surgeon patient tolerated the procedure, will follow up wound culture pending so far. surgeon has agreed to resume patient warfarin and patient has mechanical valve. will monitor, patient is present in the room. Interval history 10/06/2023: on 10/03 patient had I & D and left wrist wound was irrigated by his surgeon patient tolerated the procedure, wound culture pending no growth so far however stain showed numerous white counts, surgeon discuss with ID pharmacist has started patient on keflex and doxycycline for 6 weeks, surgeon has agreed to resume patient warfarin and patient as mechanical valve. will monitor. (3) Stage 3b chronic kidney disease: Code(s): N18.32 - Chronic kidney disease, stage 3b Status: Acute Assessment and Plan: patient with acute on chronic kidney disease, patient Scr is rising, will increase IVF to 125ml/hr from 80/hr, will encourage oral intact, will monitor kidney function. 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 will follow up and plan. Interval history 10/05/2023: patient had I & D and left wrist wound was irrigated by his surgeon patient tolerated the procedure, will follow up wound culture pending so far. surgeon has agreed to resume patient warfarin and patient has mechanical valve. will monitor, patient is present in the room. Interval history 10/06/2023: on 10/03 patient had I & D and left wrist wound was irrigated by his surgeon patient tolerated the procedure, wound culture pending no growth so far however stain showed numerous white counts, surgeon discuss with ID pharmacist has started patient on keflex and doxycycline for 6 weeks, surgeon has agreed to resume patient warfarin and patient as mechanical valve. will monitor. Review of Systems Review of Systems: 12 systems were reviewed and are negative except for as per HPI. All systems reviewed & are unremarkable except as noted in HPI and below Constitutional: Constitutional: Reports as per HPI and Reports no additional constitutional complaints Eyes: Eyes: Reports as per HPI and Reports no additional eye complaints ENT: Reports system reviewed and no additional complaints, except as documented and Reports as per HPI Cardiovascular: Cardiovascular: Reports as per HPI and Reports no additional cardiovascular complaints Respiratory: Respiratory: Reports as per HPI and Reports no additional respiratory complaints Gastrointestinal: Gastrointestinal: Reports as per HPI and Reports no additional gastrointestinal complaints Genitourinary: Genitourinary: Reports no additional male genitourinary complaints and Reports as per HPI Musculoskeletal: Musculoskeletal:
[2023-10-06] MEDS: WARFARIN (*PBKC) 5 MG TABLET PO (17:30)
[2023-10-06 21:18] VITALS: BP 152/59; PULSE 61; RESP 14; TEMP 36.4; O2SAT 94
[2023-10-07] MEDS: HYDROcodone/acetaminophen (*CRX) 5-325 MG TABLET 1 TAB PO ×3 (01:18→20:55)
[2023-10-07] MEDS: CEPHALEXIN 500 MG CAPSULE 1000 MG PO ×3 (05:28→20:55)
[2023-10-07] MEDS: SODIUM CHLORIDE 0.45% 1,000 ML 125 ML IV CONT ×3 (05:34→23:09)
[2023-10-07 05:40] VITALS: BP 153/60; PULSE 53; RESP 16; TEMP 36.2; O2SAT 97
[2023-10-07 05:55] LABS: Basophils Percent Auto 0.2 % (0.2-1.2); Eosinophils Absolute Auto 0.1 K/mm3 (0-0.3); Eosinophils Percent Auto 0.8 % (0-4.4); Hematocrit 32.8 % (42.0-52.0); Hemoglobin 10.3 g/dL (14.0-18.0); Immature Granulocyte Absolute 0.04 K/mm3 (0.00-0.031); Immature Granulocyte Percent A 0.5 % (0-0.5); Immature Platelet Fraction Pct 7.9 % (0.9-11.2); Lymphocytes Absolute Auto 1.61 K/mm3 (0.9-3.2); Lymphocytes Percent Auto 18.9 % (18.3-44.2); Mean Corpuscular HGB Conc 31.4 g/dl (32-36); Mean Corpuscular Hemoglobin 32.5 pg (26-34); Mean Corpuscular Volume 103.5 fl (80-100); Mean Platelet Volume 11.4 fl (7.4-10.4); Monocytes Percent Auto 11.4 % (2.6-8.5); Neutrophils Absolute Auto 5.8 K/mm3 (1.3-6.7); Neutrophils Percent Auto 68.2 % (45.5-73.1); Platelet Count Result 94 k/mm3 (150-375); Red Blood Count 3.17 M/mm3 (4.6-6.20); Red Cell Distribution Width 12.5 % (11.5-14.5); White Blood Count 8.5 K/mm3 (4.5-10.0)
[2023-10-07 06:08] LABS: INR 2.4; Prothrombin Time 26.7 Seconds (11.1-14.7)
[2023-10-07 06:19] LABS: Alanine Aminotransferase 15 U/L (6-50); Albumin Level 2.9 g/dL (3.5-5.1); Alkaline Phosphatase 53 U/L (38-126); Anion Gap 7 mmol/L (4-12); Aspartate Amino Transferase 24 U/L (17-59); Bilirubin,Total 0.3 mg/dL (0.2-1.3); Blood Urea Nitrogen 41 mg/dL (9-20); Calcium 8.8 mg/dL (8.4-10.2); Carbon Dioxide 23 mmol/L (22-30); Chloride 107 mmol/L (98-107); Estimated CRCL calculation 42 ml/min; Estimated Glomerular Filt Rate 49; Glucose 104 mg/dL (65-110); Magnesium 1.7 mg/dL (1.6-2.3); Potassium 3.9 mmol/L (3.4-5.0); Sodium 137 mmol/L (137-145)
[2023-10-07 07:03] LABS: Anisocytosis 1+; Platelet Estimate Adequate (Adequate)
[2023-10-07 07:04] LABS: Burr Cells 1+; Ovalocytes 1+; Schistocytes None Seen
[2023-10-07] MEDS: ATORVASTATIN 40 MG TABLET PO (09:47)
[2023-10-07 09:48] VITALS: PULSE 50
[2023-10-07] MEDS: predniSONE 5 MG TABLET PO (09:48)
[2023-10-07] MEDS: carvediloL 12.5 MG TABLET PO ×2 (09:48→20:56)
[2023-10-07] MEDS: TAMSULOSIN HCL 0.4 MG CAPSULE PO (09:48)
[2023-10-07] MEDS: SPIRONOLACTONE 25 MG TABLET PO (09:48)
[2023-10-07] MEDS: PHENYLEPH/MINERAL OIL/PETROLAT OINTMENT 57 GM 1 APPLIC RECTAL (09:49)
[2023-10-07] MEDS: DOXYCYCLINE HYCLATE 100 MG TABLET PO ×2 (09:49→20:55)
[2023-10-07] MEDS: hydrALAZINE HCL 25 MG TABLET 75 MG PO ×2 (09:49→20:55)
[2023-10-07] MEDS: LOSARTAN POTASSIUM 100 MG TABLET PO (09:49)
--- NOTE | 2023-10-07 12:43 | WPDPN ---
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 will monitor (2) Septic joint of left wrist: Code(s): M00.9 - Pyogenic arthritis, unspecified Status: Acute Assessment and Plan: Interval history 10/05/2023: patient had I & D and left wrist wound was irrigated by his surgeon patient tolerated the procedure, will follow up wound culture pending so far. surgeon has agreed to resume patient warfarin and patient has mechanical valve. will monitor, patient is present in the room. Interval history 10/06/2023: on 10/03 patient had I & D and left wrist wound was irrigated by his surgeon patient tolerated the procedure, wound culture pending no growth so far however stain showed numerous white counts, surgeon discuss with ID pharmacist has started patient on keflex and doxycycline for 6 weeks, surgeon has agreed to resume patient warfarin and patient as mechanical valve. will monitor. Interval history 10/07/2023: on 10/03 patient had I & D and left wrist wound was irrigated by his surgeon patient tolerated the procedure, wound culture pending no growth so far however stain showed numerous white counts, surgeon discuss with ID pharmacist has started patient on keflex and doxycycline for 6 weeks, surgeon has agreed to resume patient warfarin and patient as mechanical valve. today patient INR is 2.4, doxycycline will increase INR, will monitor. (3) Stage 3b chronic kidney disease: Code(s): N18.32 - Chronic kidney disease, stage 3b Status: Acute Assessment and Plan: patient with acute on chronic kidney disease, patient Scr is rising, will increase IVF to 125ml/hr from 80/hr, will encourage oral intact, will monitor kidney function. Subjective Date/time seen: 10/07/23 12:43 Interval history: 1) Septic joint of left wrist: Code(s): M00.9 - Pyogenic arthritis, unspecified Status: Acute Assessment and Plan: 10/03/2023: Left wrist x-ray negative Joint aspiration/injection done in the ED Synovial joint fluid g stain showed no organisms, anaerobic bottle still pending Synovial joint fluid revealed 896,000 synovial RBC, 73,320 synovium Wilkins cells, 92 synovial neutrophils CRP 1.6, ESR 44 Ortho consulted, possible plan for surgery INR down to 3.7 today Interval history 10/04/2023: Patient with mechanical valve on warfarin upon arrival his INR was supratherapeutic 4.9 and warfarin was on hold today INR is 3.1, patient will be seen by his surgeon plan to have I & D of the left wrist wound. will follow up and plan. Interval history 10/05/2023: patient had I & D and left wrist wound was irrigated by his surgeon patient tolerated the procedure, will follow up wound culture pending so far. surgeon has agreed to resume patient warfarin and patient has mechanical valve. will monitor, patient is present in the room. Interval history 10/06/2023: on 10/03 patient had I & D and left wrist wound was irrigated by his surgeon patient tolerated the procedure, wound culture pending no growth so far however stain showed numerous white counts, surgeon discuss with ID pharmacist has started patient on keflex and doxycycline for 6 weeks, surgeon has agreed to resume patient warfarin and patient as mechanical valve. will monitor. Interval history 10/07/2023: on 10/03 patient had I & D and left wrist wound was irrigated by his surgeon patient tolerated the procedure, wound culture pending no growth so far however stain showed numerous white counts, surgeon discuss with ID pharmacist has started patient on keflex and doxycycline for 6 weeks, surgeon has agreed to resume patient warfarin and patient as mechanical valve. today patient INR is 2.4, doxycycline will incre
[2023-10-07 14:52] VITALS: BP 135/55; PULSE 55; RESP 20; TEMP 36.2; O2SAT 94
[2023-10-07] MEDS: WARFARIN (*PBKC) 5 MG TABLET PO (17:34)
--- NOTE | 2023-10-07 18:00 | PC.NURSE ---
On 10/07/23, the UX ARCHITECT, [Rain Rodriguez ], provided care and completed [facility] documentation on this patient. I have reviewed the UX ARCHITECT's documentation and agree with the findings.
[2023-10-07 20:25] VITALS: BP 146/48; PULSE 59; RESP 20; TEMP 36.1; O2SAT 98
[2023-10-07] MEDS: MELATONIN 5 MG TABLET PO (20:55)
[2023-10-07 20:56] VITALS: PULSE 60
[2023-10-08] MEDS: HYDROcodone/acetaminophen (*CRX) 5-325 MG TABLET 1 TAB PO ×2 (04:11→22:17)
[2023-10-08 04:40] VITALS: BP 177/68; PULSE 54; RESP 20; TEMP 35.8; O2SAT 96
[2023-10-08] MEDS: CEPHALEXIN 500 MG CAPSULE 1000 MG PO ×3 (06:03→20:59)
[2023-10-08 06:22] LABS: Basophils Percent Auto 0.3 % (0.2-1.2); Eosinophils Absolute Auto 0.1 K/mm3 (0-0.3); Eosinophils Percent Auto 1.1 % (0-4.4); Hematocrit 34.4 % (42.0-52.0); Hemoglobin 11.1 g/dL (14.0-18.0); Immature Granulocyte Absolute 0.04 K/mm3 (0.00-0.031); Immature Granulocyte Percent A 0.6 % (0-0.5); Immature Platelet Fraction Pct 7.1 % (0.9-11.2); Lymphocytes Absolute Auto 1.52 K/mm3 (0.9-3.2); Lymphocytes Percent Auto 24.6 % (18.3-44.2); Mean Corpuscular HGB Conc 32.3 g/dl (32-36); Mean Corpuscular Hemoglobin 32.9 pg (26-34); Mean Corpuscular Volume 102.1 fl (80-100); Mean Platelet Volume 11.4 fl (7.4-10.4); Monocytes Absolute Auto 0.8 K/mm3 (0.1-0.6); Monocytes Percent Auto 13.1 % (2.6-8.5); Neutrophils Absolute Auto 3.7 K/mm3 (1.3-6.7); Neutrophils Percent Auto 60.3 % (45.5-73.1); Platelet Count Result 96 k/mm3 (150-375); Red Blood Count 3.37 M/mm3 (4.6-6.20); Red Cell Distribution Width 12.5 % (11.5-14.5); White Blood Count 6.2 K/mm3 (4.5-10.0)
[2023-10-08 06:30] LABS: INR 2.4
[2023-10-08 06:40] LABS: Alanine Aminotransferase 16 U/L (6-50); Albumin Level 3.1 g/dL (3.5-5.1); Alkaline Phosphatase 50 U/L (38-126); Anion Gap 6 mmol/L (4-12); Aspartate Amino Transferase 23 U/L (17-59); Bilirubin,Total 0.6 mg/dL (0.2-1.3); Blood Urea Nitrogen 34 mg/dL (9-20); Calcium 8.9 mg/dL (8.4-10.2); Carbon Dioxide 23 mmol/L (22-30); Chloride 108 mmol/L (98-107); Estimated CRCL calculation 48 ml/min; Estimated Glomerular Filt Rate 59; Glucose 87 mg/dL (65-110); Magnesium 1.6 mg/dL (1.6-2.3); Potassium 4.1 mmol/L (3.4-5.0); Sodium 137 mmol/L (137-145)
[2023-10-08] MEDS: SODIUM CHLORIDE 0.45% 1,000 ML 125 ML IV CONT ×3 (07:49→22:21)
[2023-10-08 07:50] VITALS: PULSE 56
[2023-10-08] MEDS: SPIRONOLACTONE 25 MG TABLET PO (07:50)
[2023-10-08] MEDS: hydrALAZINE HCL 25 MG TABLET 75 MG PO ×2 (07:50→20:59)
[2023-10-08] MEDS: carvediloL 12.5 MG TABLET PO (07:50)
[2023-10-08] MEDS: TAMSULOSIN HCL 0.4 MG CAPSULE PO (07:50)
[2023-10-08] MEDS: LOSARTAN POTASSIUM 100 MG TABLET PO (07:50)
[2023-10-08] MEDS: DOXYCYCLINE HYCLATE 100 MG TABLET PO ×2 (07:51→20:59)
[2023-10-08] MEDS: predniSONE 5 MG TABLET PO (07:51)
[2023-10-08] MEDS: ATORVASTATIN 40 MG TABLET PO (07:51)
[2023-10-08] MEDS: PHENYLEPH/MINERAL OIL/PETROLAT OINTMENT 57 GM 1 APPLIC RECTAL (07:51)
--- NOTE | 2023-10-08 12:16 | WPDPN ---
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 will monitor (2) Septic joint of left wrist: Code(s): M00.9 - Pyogenic arthritis, unspecified Status: Acute Assessment and Plan: Interval history 10/05/2023: patient had I & D and left wrist wound was irrigated by his surgeon patient tolerated the procedure, will follow up wound culture pending so far. surgeon has agreed to resume patient warfarin and patient has mechanical valve. will monitor, patient is present in the room. Interval history 10/06/2023: on 10/03 patient had I & D and left wrist wound was irrigated by his surgeon patient tolerated the procedure, wound culture pending no growth so far however stain showed numerous white counts, surgeon discuss with ID pharmacist has started patient on keflex and doxycycline for 6 weeks, surgeon has agreed to resume patient warfarin and patient as mechanical valve. will monitor. Interval history 10/07/2023: on 10/03 patient had I & D and left wrist wound was irrigated by his surgeon patient tolerated the procedure, wound culture pending no growth so far however stain showed numerous white counts, surgeon discuss with ID pharmacist has started patient on keflex and doxycycline for 6 weeks, surgeon has agreed to resume patient warfarin and patient as mechanical valve. today patient INR is 2.4, doxycycline will increase INR, will monitor. Interval history 10/08/2023: on 10/03 patient had I & D and left wrist wound was irrigated by his surgeon patient tolerated the procedure, wound culture pending no growth so far however stain showed numerous white counts, surgeon discuss with ID pharmacist has started patient on keflex and doxycycline for 6 weeks, surgeon has agreed to resume patient warfarin and patient as mechanical valve. today again patient INR is 2.4, doxycycline will increase INR, His surgeon will reassess his wrist wound tomorrow, and possibly discharge patient. will monitor. (3) Stage 3b chronic kidney disease: Code(s): N18.32 - Chronic kidney disease, stage 3b Status: Acute Assessment and Plan: patient with acute on chronic kidney disease, patient Scr is rising, will increase IVF to 125ml/hr from 80/hr, will encourage oral intact, will monitor kidney function. Subjective Date/time seen: 10/08/23 12:16 Interval history: 1) Septic joint of left wrist: Code(s): M00.9 - Pyogenic arthritis, unspecified Status: Acute Assessment and Plan: 10/03/2023: Left wrist x-ray negative Joint aspiration/injection done in the ED Synovial joint fluid g stain showed no organisms, anaerobic bottle still pending Synovial joint fluid revealed 896,000 synovial RBC, 73,320 synovium Wilkins cells, 92 synovial neutrophils CRP 1.6, ESR 44 Ortho consulted, possible plan for surgery INR down to 3.7 today Interval history 10/04/2023: Patient with mechanical valve on warfarin upon arrival his INR was supratherapeutic 4.9 and warfarin was on hold today INR is 3.1, patient will be seen by his surgeon plan to have I & D of the left wrist wound. will follow up and plan. Interval history 10/05/2023: patient had I & D and left wrist wound was irrigated by his surgeon patient tolerated the procedure, will follow up wound culture pending so far. surgeon has agreed to resume patient warfarin and patient has mechanical valve. will monitor, patient is present in the room. Interval history 10/06/2023: on 10/03 patient had I & D and left wrist wound was irrigated by his surgeon patient tolerated the procedure, wound culture pending no growth so far however stain showed numerous white counts, surgeon discuss with ID pharmacist has started patient on keflex and doxycy
[2023-10-08 14:33] VITALS: BP 146/59; PULSE 58; RESP 20; TEMP 36.5; O2SAT 100
--- NOTE | 2023-10-08 17:24 | PC.NURSE ---
On 10/08/23, the COAT CHECK ATTENDANT, [Rain Rodriguez ], provided care and completed [facility] documentation on this patient. I have reviewed the COAT CHECK ATTENDANT's documentation and agree with the findings.
[2023-10-08] MEDS: WARFARIN (*PBKC) 5 MG TABLET PO (17:57)
[2023-10-08 21:02] VITALS: BP 175/63; PULSE 54; PULSE 56; RESP 12; TEMP 36.2; O2SAT 97
[2023-10-08] MEDS: MELATONIN 5 MG TABLET PO (22:17)
[2023-10-09 05:22] VITALS: BP 171/60; PULSE 57; RESP 13; TEMP 36.1; O2SAT 97
[2023-10-09] MEDS: SODIUM CHLORIDE 0.45% 1,000 ML 125 ML IV CONT (06:27)
[2023-10-09] MEDS: CEPHALEXIN 500 MG CAPSULE 1000 MG PO ×2 (06:27→13:05)
[2023-10-09 06:38] LABS: Magnesium 1.6 mg/dL (1.6-2.3)
[2023-10-09 06:39] LABS: INR 2.8; Prothrombin Time 29.8 Seconds (11.1-14.7)
[2023-10-09] MEDS: predniSONE 5 MG TABLET PO (08:27)
[2023-10-09] MEDS: DOXYCYCLINE HYCLATE 100 MG TABLET PO (08:27)
[2023-10-09] MEDS: hydrALAZINE HCL 25 MG TABLET 75 MG PO (08:27)
[2023-10-09] MEDS: TAMSULOSIN HCL 0.4 MG CAPSULE PO (08:27)
[2023-10-09] MEDS: ATORVASTATIN 40 MG TABLET PO (08:27)
[2023-10-09] MEDS: LOSARTAN POTASSIUM 100 MG TABLET PO (08:27)
[2023-10-09] MEDS: SPIRONOLACTONE 25 MG TABLET PO (08:27)
[2023-10-09 08:29] VITALS: PULSE 57
[2023-10-09] MEDS: carvediloL 12.5 MG TABLET PO (08:29)
--- NOTE | 2023-10-09 11:40 | PM.DS ---
DS: Admitting Diagnosis Discharge Date 10/09/2023 Admitting Diagnosis Septic joint of left wrist: DS: Discharge Diagnosis Discharge Diagnosis (1) Septic joint of left wrist: Code(s): M00.9 - Pyogenic arthritis, unspecified Status: Acute DS: Summary Hospital Course Hospital Course: Interval history 10/05/2023: patient had I & D and left wrist wound was irrigated by his surgeon patient tolerated the procedure, will follow up wound culture pending so far. surgeon has agreed to resume patient warfarin and patient has mechanical valve. will monitor, patient is present in the room. Interval history 10/06/2023: on 10/03 patient had I & D and left wrist wound was irrigated by his surgeon patient tolerated the procedure, wound culture pending no growth so far however stain showed numerous white counts, surgeon discuss with ID pharmacist has started patient on keflex and doxycycline for 6 weeks, surgeon has agreed to resume patient warfarin and patient as mechanical valve. will monitor. Interval history 10/07/2023: on 10/03 patient had I & D and left wrist wound was irrigated by his surgeon patient tolerated the procedure, wound culture pending no growth so far however stain showed numerous white counts, surgeon discuss with ID pharmacist has started patient on keflex and doxycycline for 6 weeks, surgeon has agreed to resume patient warfarin and patient as mechanical valve. today patient INR is 2.4, doxycycline will increase INR, will monitor. Interval history 10/08/2023: on 10/03 patient had I & D and left wrist wound was irrigated by his surgeon patient tolerated the procedure, wound culture pending no growth so far however stain showed numerous white counts, surgeon discuss with ID pharmacist has started patient on keflex and doxycycline for 6 weeks, surgeon has agreed to resume patient warfarin and patient as mechanical valve. today again patient INR is 2.4, doxycycline will increase INR, His surgeon will reassess his wrist wound tomorrow, and possibly discharge patient. will monitor. patient wound has improved and he is clinically stable, will discharge home today. Time Spent with Patient Time attestation: Total time spent providing and/or coordinating discharge services: Exam Narrative: General: patient is comfortable NAD HEENT: eyes are clear nonicteric, normocephalic, atraumatic. Oral mucosa moist. RESP: CTA HEART: RR S1S2 LUNGS: CTA ABD: BS+, non tender. SKIN: no obvious rash EXTREMITIES: no edema NEURO:A&O grossly intact PSYCH: Pleasant and cooperative with normal mood and affect MS: left wrist in surgical dressing. DS: Data Data Completed and Pending Labs on day of discharge: Labs from last 24 hours 10/09/23 05:50 PT 29.8 H INR 2.8 Magnesium 1.6 Preliminary micro results at discharge 10/02/23 10:57 Aerobic Culture - Preliminary Synovial Fluid Unspecified 10/04/23 13:16 Anaerobic Culture - Preliminary Wrist Left 10/04/23 13:13 Anaerobic Culture - Preliminary Wrist Left Discharge Plan Discharge Attending physician on discharge: Liudmila Alvarado Consulting providers: Solo Patel; Anusha Silvestre; Liudmila Alvarado; Richy Jones; Selin Pham; Rusty Benson V.; Dax Mijares Discharging Clinician: Denise Page Patient Disposition: Home, Self-Care Activity: as tolerated Diet: heart healthy Discharge Instructions: patient to follow discharge care instruction from his surgeon for wound care and follow up, patient to follow up with his primary care provider as soon as possible patient needs his INR monitor as well as his left wrist wound, patient and his agree with plan. Patient Instructions: Antibiotic Form, Warfarin (By mouth), Septic Arthritis (DC) Stand Alone Forms: General Discharge Information Follow-up/Referrals: Solo Patel MD [Physician] - Kelton,Samuel Bauer MD [Primary C
== END 2023-10-09 13:20 | disposition home or self-care (01) | DRG 514 ==
LOC: ANHED 13:53 → ANH3MEDSUR 14:40
PROVIDERS: Nurse Practitioner Acute Care; Orthopaedic Surgery; Physician Assistant; Admitting Provider Internal Medicine; Emergency Provider Emergency Medicine; PCP Internal Medicine; Visit Provider Family Medicine
DX: M00.9 Pyogenic arthritis, unspecified (principal); I10 Essential (primary) hypertension; I25.10 Atherosclerotic heart disease of native coronary artery without angina pectoris; I87.8 Other specified disorders of veins; D69.6 Thrombocytopenia, unspecified; D64.9 Anemia, unspecified; E11.9 Type 2 diabetes mellitus without complications; E53.8 Deficiency of other specified B group vitamins; E78.5 Hyperlipidemia, unspecified; K21.9 Gastro-esophageal reflux disease without esophagitis; N18.30 Chronic kidney disease, stage 3 unspecified; M48.00 Spinal stenosis, site unspecified; M06.9 Rheumatoid arthritis, unspecified; N40.0 Benign prostatic hyperplasia without lower urinary tract symptoms; N32.81 Overactive bladder; R79.1 Abnormal coagulation profile; G47.33 Obstructive sleep apnea (adult) (pediatric); Z79.01 Long term (current) use of anticoagulants; Z95.1 Presence of aortocoronary bypass graft; Z95.5 Presence of coronary angioplasty implant and graft; Z79.52 Long term (current) use of systemic steroids; Z95.4 Presence of other heart-valve replacement
CPT/HCPCS: 20605; 36415; 73110; 77002; 80053; 80202; 82565; 82607; 82728; 82746; 82948; 83540; 83550; 83735; 85025; 85055; 85610; 85652; 85730; 86140; 87070; 87075; 87205; 89051; 89060; 96361; 96365; 96366; 96367; 96375; 99285; A9270; G0378; J0690; J0692; J0696; J1100; J1170; J2270; J2405; J2704; J3010; J3370; J7120; J7512

== ENCOUNTER 2023-12-12 15:33 | Emergency (ER) | payer MEDICARE, SELFPAY ==
[2023-12-12 15:42] VITALS: BP 115/40; PULSE 80; RESP 16; TEMP 36.4; O2SAT 96
== END 2023-12-12 16:18 | disposition left against medical advice (07) ==
PROVIDERS: PCP Internal Medicine
DX: R11.2 Nausea with vomiting, unspecified (principal)
CPT/HCPCS: 99199